=== PATIENT | female | born 1970 | race African-American/Black ===

== ENCOUNTER 2021-10-17 17:38 | Emergency (ER) | payer OTHER, SELFPAY ==
[2021-10-17 18:29] VITALS: BP 121/87; PULSE 77; RESP 18; TEMP 36.2; O2SAT 98; BMI 24.3
== END 2021-10-18 01:41 | disposition left against medical advice (07) ==
LOC: HO.ED 10-18 00:07
PROVIDERS: Emergency Provider Emergency Medicine; PCP Internal Medicine
DX: T25.022A Burn of unspecified degree of left foot, initial encounter (principal); X08.8XXA Exposure to other specified smoke, fire and flames, initial encounter; Y93.9 Activity, unspecified; Y92.9 Unspecified place or not applicable; Y99.9 Unspecified external cause status
CPT/HCPCS: 99281; 99282

== ENCOUNTER 2021-10-19 15:20 | Emergency (ER) | payer OTHER, SELFPAY ==
[2021-10-19 15:34] VITALS: BP 125/95; PULSE 105; RESP 18; TEMP 36.8; O2SAT 97; BMI 25.0
--- NOTE | 2021-10-19 16:23 | ED_ITS ---
HPI - Skin/Abscess/Foreign Bdy General Chief complaint: Skin/Abscess/Foreign Body Stated complaint: left foot 2nd degree burn Time Seen by Provider: 10/19/21 15:57 Source: patient Mode of arrival: ambulatory History of Present Illness HPI narrative: 51-year-old female with a past medical history of sarcoidosis presenting to the ED complaining of burn to top of left foot/toes x1 week s/p spilling hot oil on foot. Reports area of becoming increasingly painful, more swollen/red. Patient waited in our ED on 10/17 however LWT. Denies fever, chills, burn to other area, numbness/tingling, drainage from area MD complaint: abscess/boil Related Data Previous Rx's Medication Instructions Recorded cephalexin 500 mg capsule 500 mg PO QID 7 Days #28 cap 10/19/21 silver sulfadiazine 1 % topical 1 appl TOPICAL BID #50 g 10/19/21 cream Allergies Allergy/AdvReac Type Severity Reaction Status Date / Time ibuprofen [From Motrin] Allergy Unknown HIVES/STOMACH Verified 10/19/21 15:34 UPSET Review of Systems Review of Systems: Constitutional: No Fever, No Chills ENT/Mouth: No Ear Pain, No sore throat, No Rhinorrhea, No Swallowing Difficulty Cardiovascular: No Chest Pain, No SOB Respiratory: No Cough, No Sputum, No Wheezing Gastrointestinal: No Nausea, No Vomiting, No Diarrhea, No Constipation, No Abdominal pain Genitourinary:, No Dysuria, No Urinary Frequency, No Hematuria, No Flank Pain Musculoskeletal: No joint pain, No Myalgias, + foot Swelling Skin: +Skin Lesions, No rash Neuro: No Weakness, No Numbness, No Paresthesias Yes all other systems are reviewed and are negative [facility] Past Medical History Attestation statement: The following information was validated with the patient. Medical History Cardiac defibrillator in place Sarcoidosis Social History Social History Advance Directives: No Advance Directives Information Provided: Yes Physical Exam Vital Signs: Vital Signs: Last Vital Signs Temp 98.2 F 10/19/21 15:34 Pulse 79 10/19/21 16:29 Resp 18 10/19/21 16:29 BP 128/81 10/19/21 16:29 Pulse Ox 100 10/19/21 16:29 BMI result Body Mass Index 25.0 Const: General: cooperative, healthy appearing and no acute distress Kevin entation/consciousness: patient oriented x3 Limitations: no limitations HENMT: Head: Yes normal to inspection Ears: hearing grossly normal bilaterally General nose exam: Normal external nose present Face and sinus: Yes normal facial exam Eyes: General: appearance normal, both eyes and all related structures EOM: EOMs intact bilaterally Neck: Neck: Yes normal visual inspection and Yes no meningeal signs Resp: Effort & Inspection: normal respiratory effort and no respiratory distress Cardio: Rate: regular rate Peripheral pulses: dorsalis pedis present : General: Yes no CVA tenderness Back/Spine/Pelvis: Back: no CVA tenderness Skin: Other: Please refer to images above. Healing Second degree burn noted to ventral aspect of the left foot with mild erythema, swelling, and stages of granulation tissue present. No fluctuation/induration. Distal pulses intact. ROM of toes intact. No streaking. Rashes: no rashes Neuro: General: patient oriented x3 and no meningeal signs Gait exam (Neuro): Normal gait present Extrem: General: Yes normal to inspection and Yes no pedal edema Course Course Course Narrative: -tachycardia resolved without other intervention. MDM - Skin/Abscess/Foreign Bdy MDM Narrative Medical decision making narrative: 51-year-old female with a past medical history of sarcoidosis presenting to the ED complaining of burn to top of left foot/toes x1 week s/p spilling hot oil on foot. On exam mildly tachycardic likely from pain, physical exam as above. Please refer to images. Concern for infected burn. Silver Silvadene applied and patient given 1st dose of Keflex in the ED. Low concern for severe sepsis. Low concern for osteomyelitis Discussed needed re-evaluation in 3 days. Patient verbalized understanding feel safe for discharge home at this time Medical Records Attestation: I reviewed the patient's medical records. Lab Data Attestation: I reviewed the patient's lab results. Discharge Plan Discharge Clinical Impression: Cellulitis, Burn Patient Disposition: Home, Self-Care Instructions: Cellulitis (ED), Second Degree Burn (ED) Additional Instructions: Your burn appears to be healing and also with early infection Apply Silver Silvadene as prescribed In addition Keflex is an oral antibiotic Please be re-evaluated in 3 days If swelling, redness, pain increases, you developed drainage from wound or streaking please return to the ED Prescriptions: New silver sulfadiazine 1 % cream 1 appl topical BID Qty: 50 RF: 0 cephalexin 500 mg capsule 500 mg PO QID 7 Days Qty: 28 RF: 0 Referrals: Jeremy Pickering MD [Primary Care Provider] - 2 days (For re-evaluation)
[2021-10-19 16:29] VITALS: BP 128/81; PULSE 79; RESP 18; O2SAT 100
[2021-10-19] MEDS: cephALEXin 500 MG CAPSULE PO (16:33)
[2021-10-19] MEDS: Silver Sulfadiazine 1 % Cream 20 GM TUBE 1 APPL TOPICAL (16:33)
== END 2021-10-19 16:50 | disposition home or self-care (01) ==
PROVIDERS: Emergency Provider Emergency Medicine; PCP Internal Medicine
DX: L03.032 Cellulitis of left toe (principal); Z79.899 Other long term (current) drug therapy
CPT/HCPCS: 99284

== ENCOUNTER 2021-10-19 16:54 | Outpatient (REF) | payer OTHER, SELFPAY ==
[2021-10-19 17:17] LABS: MANUAL DIFF FLAG NO
[2021-10-19 17:36] LABS: Anion Gap 12 (12-20); Blood Urea Nitrogen 7 mg/dL (9-16); Calcium 10.2 mg/dL (8.4-10.2); Carbon Dioxide 28 mmol/L (22-29); Chloride 105 mmol/L (96-108); Cholesterol 141 mg/dL; Estimated Glomerular Filt Rate > 60; Glucose Random 96 mg/dL (60-115); HDL Cholesterol 42 mg/dL; LDL Cholesterol Calculated 85 mg/dl; Potassium 3.3 mmol/L (3.3-5.1); Sodium 142 mmol/L (135-145); Triglycerides 73 mg/dL
[2021-10-19 17:42] LABS: Basophils Percent Auto 0.5 % (0-2); Eosinophils Absolute Auto 0.1 X10*3/uL (0.0-0.4); Eosinophils Percent Auto 1.7 % (0-4); Hematocrit 40.3 % (37.0-47.0); Hemoglobin 13.6 g/dl (12.0-16.0); Imm Gran Abs Auto 0.01 X10*3/uL (0.00-0.03); Imm Gran Pct Auto 0.2 % (0.0-0.4); Lymphocytes Absolute Auto 2.5 X10*3/uL (1.2-4.9); Lymphocytes Percent Auto 42.6 % (20-40); Mean Corpuscular HGB Conc 33.7 g/dl (31.0-35.0); Mean Corpuscular Hemoglobin 31.3 pg (27.0-33.0); Mean Corpuscular Volume 92.6 fL (80.0-98.0); Mean Platelet Volume 11.8 fL (9.4-12.3); Monocytes Absolute Auto 0.8 X10*3/uL (0.1-1.2); Monocytes Percent Auto 12.8 % (2-11); Neutrophils Absolute Auto 2.5 x10*3/uL (2.0-8.3); Neutrophils Percent Auto 42.2 % (45-73); Platelet Count 245 X10*3/uL (160-400); Red Blood Count 4.35 X10*6/uL (4.20-5.50)
== END 2021-10-19 16:55 | disposition home or self-care (01) ==
LOC: HO.LAB 16:54
PROVIDERS: PCP Internal Medicine; Visit Provider Nurse Practitioner Psychiatric/Mental Health
DX: Z79.899 Other long term (current) drug therapy (principal)
CPT/HCPCS: 36415; 80048; 80061; 85025

== ENCOUNTER 2022-05-07 11:05 | Outpatient (REF) | payer OTHER, SELFPAY ==
[2022-05-07 14:17] LABS: MANUAL DIFF FLAG NO
[2022-05-07 14:43] LABS: Basophils Percent Auto 0.4 % (0-2); Eosinophils Absolute Auto 0.2 X10*3/uL (0.0-0.4); Eosinophils Percent Auto 3.5 % (0-4); Hematocrit 39.9 % (37.0-47.0); Hemoglobin 12.9 g/dl (12.0-16.0); Imm Gran Abs Auto 0.01 X10*3/uL (0.00-0.03); Imm Gran Pct Auto 0.2 % (0.0-0.4); Lymphocytes Absolute Auto 2.5 X10*3/uL (1.2-4.9); Lymphocytes Percent Auto 44.1 % (20-40); Mean Corpuscular HGB Conc 32.3 g/dl (31.0-35.0); Mean Corpuscular Hemoglobin 29.8 pg (27.0-33.0); Mean Corpuscular Volume 92.1 fL (80.0-98.0); Mean Platelet Volume 11.8 fL (9.4-12.3); Monocytes Absolute Auto 0.6 X10*3/uL (0.1-1.2); Monocytes Percent Auto 10.2 % (2-11); Neutrophils Absolute Auto 2.4 x10*3/uL (2.0-8.3); Neutrophils Percent Auto 41.6 % (45-73); Platelet Count 141 X10*3/uL (160-400); Red Blood Count 4.33 X10*6/uL (4.20-5.50); Red Cell Distribution Width 14.4 % (11.0-16.0); White Blood Count 5.7 X10*3/uL (4.8-10.8)
[2022-05-07 14:53] LABS: Estimated Average Glucose 111 mg/dL; Hemoglobin A1c % 5.5 %
[2022-05-07 15:12] LABS: Anion Gap 11 (12-20); Blood Urea Nitrogen 10 mg/dL (9-16); Calcium 9.9 mg/dL (8.4-10.2); Carbon Dioxide 30 mmol/L (22-29); Chloride 104 mmol/L (96-108); Cholesterol 153 mg/dL; Estimated Glomerular Filt Rate > 60; Glucose Fasting 99 mg/dL (60-99); HDL Cholesterol 44 mg/dL; LDL Cholesterol Calculated 94 mg/dl; Potassium 3.8 mmol/L (3.3-5.1); Sodium 141 mmol/L (135-145); Triglycerides 79 mg/dL
[2022-05-07 15:34] LABS: Free T4 (Free Thyroxine) 0.97 ng/dL (0.71-1.85); Thyroid Stimulating Hormone 1.62 uIU/mL (0.32-4.0)
== END 2022-05-07 11:06 | disposition home or self-care (01) ==
LOC: HO.LAB 11:05
PROVIDERS: PCP Internal Medicine; Visit Provider Nurse Practitioner Psychiatric/Mental Health
DX: F33.1 Major depressive disorder, recurrent, moderate (principal); Z79.899 Other long term (current) drug therapy
CPT/HCPCS: 36415; 80048; 80061; 83036; 84439; 84443; 85025

== ENCOUNTER 2023-07-29 13:59 | Outpatient (REF) | payer OTHER, SELFPAY ==
[2023-07-29 15:07] LABS: Hemoglobin 12.7 g/dl (12.0-16.0); SCAN SMEAR FLAG 1
[2023-07-29 15:10] LABS: Basophils Percent Auto 0.4 % (0-2); Eosinophils Absolute Auto 0.1 X10*3/uL (0.0-0.4); Eosinophils Percent Auto 2.7 % (0-4); Lymphocytes Absolute Auto 2.6 X10*3/uL (1.2-4.9); Lymphocytes Percent Auto 49.8 % (20-40); MANUAL DIFF FLAG SCAN; Mean Corpuscular HGB Conc 32.6 g/dl (31.0-35.0); Mean Corpuscular Hemoglobin 30.2 pg (27.0-33.0); Mean Corpuscular Volume 92.9 fL (80.0-98.0); Monocytes Absolute Auto 0.6 X10*3/uL (0.1-1.2); Monocytes Percent Auto 12.1 % (2-11); Neutrophils Absolute Auto 1.8 x10*3/uL (2.0-8.3); Platelet Count 115 X10*3/uL (160-400); White Blood Count 5.1 X10*3/uL (4.8-10.8)
[2023-07-29 15:15] LABS: Anion Gap 11 (12-20); Blood Urea Nitrogen 13 mg/dL (9-16); Calcium 9.6 mg/dL (8.4-10.2); Carbon Dioxide 25 mmol/L (22-29); Chloride 107 mmol/L (96-108); Cholesterol 147 mg/dL (<200); Estimated Glomerular Filt Rate > 60; Glucose Fasting 89 mg/dL (60-99); HDL Cholesterol 47 mg/dL (>40); LDL Cholesterol Calculated 88 mg/dL (<100); Potassium 3.6 mmol/L (3.3-5.1); Sodium 139 mmol/L (135-145); Triglycerides 64 mg/dL (<150)
[2023-07-29 15:20] LABS: PLT ABN DIST 1
[2023-07-29 17:04] LABS: SLIDE REVIEW VERIFIED
== END 2023-07-29 14:00 | disposition home or self-care (01) ==
LOC: HO.LAB 13:59
PROVIDERS: Visit Provider Nurse Practitioner Psychiatric/Mental Health
DX: F33.1 Major depressive disorder, recurrent, moderate (principal); F41.1 Generalized anxiety disorder; Z79.899 Other long term (current) drug therapy
CPT/HCPCS: 36415; 80048; 80061; 85025

== ENCOUNTER 2023-08-29 12:03 | Outpatient (REF) | payer OTHER, SELFPAY ==
[2023-08-29 12:31] LABS: MANUAL DIFF FLAG NO
[2023-08-29 13:52] LABS: Estimated Average Glucose 108 mg/dL; Hemoglobin A1c % 5.4 % (<6.0)
[2023-08-29 13:54] LABS: Basophils Percent Auto 0.2 % (0-2); Eosinophils Absolute Auto 0.1 X10*3/uL (0.0-0.4); Hematocrit 38.7 % (37.0-47.0); Hemoglobin 12.6 g/dl (12.0-16.0); Imm Gran Abs Auto 0.01 X10*3/uL (0.00-0.03); Imm Gran Pct Auto 0.2 % (0.0-0.4); Lymphocytes Absolute Auto 1.8 X10*3/uL (1.2-4.9); Lymphocytes Percent Auto 43.5 % (20-40); Mean Corpuscular HGB Conc 32.6 g/dl (31.0-35.0); Mean Corpuscular Hemoglobin 30.4 pg (27.0-33.0); Mean Corpuscular Volume 93.3 fL (80.0-98.0); Mean Platelet Volume 13.7 fL (9.4-12.3); Monocytes Absolute Auto 0.4 X10*3/uL (0.1-1.2); Monocytes Percent Auto 9.6 % (2-11); Neutrophils Absolute Auto 1.8 x10*3/uL (2.0-8.3); Neutrophils Percent Auto 44.5 % (45-73); Platelet Count 100 X10*3/uL (160-400); Red Blood Count 4.15 X10*6/uL (4.20-5.50); Red Cell Distribution Width 14.6 % (11.0-16.0); White Blood Count 4.1 X10*3/uL (4.8-10.8)
[2023-08-29 14:31] LABS: Erythrocyte Sedimentation Rate 7 MM/HR (0-20)
[2023-08-29 14:39] LABS: Alanine Aminotransferase 18 U/L (0-31); Albumin Level 3.8 g/dL (3.5-5.0); Alkaline Phosphatase 71 U/L (39-117); Anion Gap 12 (12-20); Aspartate Amino Transferase 23 U/L (5-31); Bilirubin Total 0.4 mg/dL (0.0-1.0); Blood Urea Nitrogen 12 mg/dL (9-16); C Reactive Protein 0.15 mg/dL (< or = 0.50); Calcium 9.8 mg/dL (8.4-10.2); Carbon Dioxide 24 mmol/L (22-29); Chloride 108 mmol/L (96-108); Estimated Glomerular Filt Rate > 60; Glucose Random 132 mg/dL (60-115); Potassium 3.9 mmol/L (3.3-5.1); Sodium 140 mmol/L (135-145); Total Protein 6.9 g/dL (6.5-8.0)
[2023-09-04 23:39] LABS: NT-proBNP 2119 pg/mL (<125)
== END 2023-08-29 12:04 | disposition home or self-care (01) ==
LOC: HO.LAB 12:03
PROVIDERS: PCP Internal Medicine; Visit Provider Nurse Practitioner Family
DX: I50.22 Chronic systolic (congestive) heart failure (principal); D86.85 Sarcoid myocarditis; I25.10 Atherosclerotic heart disease of native coronary artery without angina pectoris
CPT/HCPCS: 36415; 80053; 83036; 83880; 85025; 85652; 86140

== ENCOUNTER 2024-01-14 14:41 | Inpatient (IN) | payer OTHER, SELFPAY ==
--- NOTE | ~2024-01-14 | XR_ITS ---
EXAMINATION: XR CHEST CLINICAL INFORMATION: Shortness of breath COMPARISON: Chest x-ray October 25, 2010 TECHNIQUE: 2 views of the chest were obtained. FINDINGS: Heart size is enlarged. Pacemaker lead in right ventricle. Mild prominence of the pulmonary vessels with Lesley B lines seen in the right lung base consistent with mild interstitial edema. No focal airspace opacities or overt pulmonary edema. No significant pleural effusion. XR/XR chest 2V IMPRESSION: Cardiomegaly. Pacemaker lead in right ventricle. Mild pulmonary vascular congestion.
[2024-01-14 14:44] VITALS: BP 130/76; PULSE 105; RESP 18; TEMP 36.9; O2SAT 100; BMI 21.0
--- NOTE | 2024-01-14 14:49 | ECG_ITS ---
Test Reason : SOB Blood Pressure : / mmHG Vent. Rate : 090 BPM Atrial Rate : 090 BPM P-R Int : 172 ms QRS Dur : 094 ms QT Int : 400 ms P-R-T Axes : 036 185 038 degrees QTc Int : 489 ms Normal sinus rhythm Possible Left atrial enlargement Possible Right ventricular hypertrophy Lateral infarct , age undetermined Abnormal ECG No previous ECGs available Referred By: Juventino Moralez Electronically Signed By:ANNE POPE MD
[2024-01-14 15:36] LABS: MANUAL DIFF FLAG NO
[2024-01-14 15:38] LABS: Basophils Percent Auto 0.6 % (0-2); Eosinophils Absolute Auto 0.2 X10*3/uL (0.0-0.4); Eosinophils Percent Auto 2.4 % (0-4); Hematocrit 40.7 % (37.0-47.0); Hemoglobin 13.2 g/dl (12.0-16.0); Imm Gran Abs Auto 0.01 X10*3/uL (0.00-0.03); Imm Gran Pct Auto 0.1 % (0.0-0.4); Lymphocytes Absolute Auto 2.3 X10*3/uL (1.2-4.9); Lymphocytes Percent Auto 32.2 % (20-40); Mean Corpuscular HGB Conc 32.4 g/dl (31.0-35.0); Mean Corpuscular Hemoglobin 30.2 pg (27.0-33.0); Mean Corpuscular Volume 93.1 fL (80.0-98.0); Mean Platelet Volume 12.7 fL (9.4-12.3); Monocytes Absolute Auto 0.7 X10*3/uL (0.1-1.2); Neutrophils Absolute Auto 3.9 x10*3/uL (2.0-8.3); Neutrophils Percent Auto 54.7 % (45-73); Platelet Count 134 X10*3/uL (160-400); Red Blood Count 4.37 X10*6/uL (4.20-5.50); Red Cell Distribution Width 16.2 % (11.0-16.0); White Blood Count 7.1 X10*3/uL (4.8-10.8)
[2024-01-14 15:49] LABS: D Dimer High Sensitivity 486 NG/ML
[2024-01-14 15:53] LABS: Alanine Aminotransferase 39 U/L (0-31); Albumin Level 3.1 g/dL (3.5-5.0); Alkaline Phosphatase 71 U/L (39-117); Anion Gap 8 (12-20); Aspartate Amino Transferase 45 U/L (5-31); Bilirubin Direct 0.3 mg/dL (0.0-0.5); Bilirubin Total 0.5 mg/dL (0.0-1.0); Blood Urea Nitrogen 10 mg/dL (9-16); Calcium 8.9 mg/dL (8.4-10.2); Carbon Dioxide 28 mmol/L (22-29); Chloride 110 mmol/L (96-108); Creatinine Clr Calc Pharmacy 71.7; Estimated Glomerular Filt Rate > 60; Glucose Random 95 mg/dL (60-115); Sodium 142 mmol/L (135-145)
[2024-01-14 15:59] LABS: B Type Natriuretic Peptide 1181 pg/mL (<100)
--- NOTE | 2024-01-14 17:10 | ED.GENADULT ---
HPI - General Adult General Chief complaint: Dyspnea Stated complaint: dIFF bREATHING Related Data Previous Rx's Medication Instructions Recorded cephalexin 500 mg capsule 500 mg PO QID 7 days #28 caps 10/19/21 silver sulfadiazine 1 % topical 1 appl topical BID #50 grams 10/19/21 cream Allergies Allergy/AdvReac Type Severity Reaction Status Date / Time ibuprofen [From Motrin] Allergy Unknown HIVES/STOMACH Verified 10/19/21 15:34 UPSET PMFSH Past Medical History Medical History Cardiac defibrillator in place Sarcoidosis Physical Exam ED Vital Signs: Vital Signs - 24 hr 01/14/24 14:44 Temperature 98.5 F Pulse Rate 105 H Respiratory Rate 18 Blood Pressure 130/76 Pulse Oximetry 100 Oxygen Delivery Method Room Air BMI result Body Mass Index 21.0 Course Course Course Narrative: Patient complains of shortness of breath for the last 5 days and chest tightness with exertion She is breathing rapidly about mid 20s, O2 sat is normal, pulse is 105, no respiratory distress Labs are ordered x-ray and EKG This is rapid medical exam done in triage pending full evaluation and dispo by ER providers Medical Decision Making Lab Data 01/14/24 15:31 01/14/24 15:31 Labs: Lab Results 01/14/24 Range/Units 15:31 WBC 7.1 (4.8-10.8) X10*3/uL RBC 4.37 (4.20-5.50) X10*6/uL Hgb 13.2 (12.0-16.0) g/dl Hct 40.7 (37.0-47.0) % MCV 93.1 (80.0-98.0) fL MCH 30.2 (27.0-33.0) pg MCHC 32.4 (31.0-35.0) g/dl RDW 16.2 H (11.0-16.0) % Plt Count 134 L D (160-400) X10*3/uL MPV 12.7 H (9.4-12.3) fL Immature Gran % (Auto) 0.1 (0.0-0.4) % Neut % (Auto) 54.7 (45-73) % Lymph % (Auto) 32.2 (20-40) % [place] % (Auto) 10.0 (2-11) % Eos % (Auto) 2.4 (0-4) % Baso % (Auto) 0.6 (0-2) % Lymph # (Auto) 2.3 (1.2-4.9) X10*3/uL [place] # (Auto) 0.7 (0.1-1.2) X10*3/uL Eos # (Auto) 0.2 (0.0-0.4) X10*3/uL Baso # (Auto) 0.0 (0.0-0.2) X10*3/uL Abs Immat Gran (auto) 0.01 (0.00-0.03) X10*3/uL Absolute Neuts (auto) 3.9 (2.0-8.3) x10*3/uL Absolute Nucleated RBC 0.000 (0.0-0.012) X10*3/uL Nucleated RBC % (auto) 0.0 (0.0-0.2) /100WBC D-Dimer High Sensitivty 486 NG/ML Sodium 142 (135-145) mmol/L Potassium 4.0 (3.3-5.1) mmol/L Chloride 110 H (96-108) mmol/L Carbon Dioxide 28 (22-29) mmol/L Anion Gap 8 L (12-20) BUN 10 (9-16) mg/dL Creatinine 0.87 (0.5-1.4) mg/dL Estim Creat Clear Calc 71.7 Estimated GFR > 60 Random Glucose 95 (60-115) mg/dL Calcium 8.9 D (8.4-10.2) mg/dL Total Bilirubin 0.5 (0.0-1.0) mg/dL Direct Bilirubin 0.3 (0.0-0.5) mg/dL AST 45 H (5-31) U/L ALT 39 H (0-31) U/L Alkaline Phosphatase 71 (39-117) U/L Troponin I High Sens 30.0 H (<3.5-17.0) ng/L B-Natriuretic Peptide 1181 H (<100) pg/mL Total Protein 6.0 L (6.5-8.0) g/dL Albumin 3.1 L (3.5-5.0) g/dL Discharge Plan Discharge Prescriptions: No Action silver sulfadiazine 1 % cream 1 appl topical BID Qty: 50 0RF Rx Instructions: apply a 1.5 mm thickness cephalexin 500 mg capsule 500 mg PO QID 7 Days Qty: 28 0RF
[2024-01-14 19:55] VITALS: BP 116/78; PULSE 88; RESP 14; TEMP 36.7
--- NOTE | 2024-01-14 20:17 | ED.GENADULT ---
HPI - General Adult General Chief complaint: Dyspnea Stated complaint: dIFF bREATHING Time Seen by Provider: 01/14/24 20:08 Source: patient Limitations: no limitations History of Present Illness HPI narrative: 53 years old with history of sarcoidosis, CHF status post ICD on Entresto Presents emergency room for shortness of breath has been ongoing for 5 days not associated with chest pain. Patient reports that the shortness of breath can present at rest as well as exertional and usually lasts few minutes. She denies productive cough, chills or fever. No abdominal pain nausea or vomiting. No recent trauma. Related Data Previous Rx's Medication Instructions Recorded cephalexin 500 mg capsule 500 mg PO QID 7 days #28 caps 10/19/21 silver sulfadiazine 1 % topical 1 appl topical BID #50 grams 10/19/21 cream Allergies Allergy/AdvReac Type Severity Reaction Status Date / Time ibuprofen [From Motrin] Allergy Unknown HIVES/STOMACH Verified 10/19/21 15:34 UPSET PMFSH Past Medical History Medical History Cardiac defibrillator in place Sarcoidosis Social History Social History Advance Directives: No Advance Directives Information Provided: No Physical Exam ED Vital Signs: Vital Signs - 24 hr 01/14/24 14:44 01/14/24 19:55 Temperature 98.5 F 98.1 F Pulse Rate 105 H 88 Respiratory Rate 18 14 Blood Pressure 130/76 116/78 Pulse Oximetry 100 Oxygen Delivery Method Room Air Room Air Oxygen Flow Rate 95 BMI result Body Mass Index 21.0 Course Reevaluation(s) Reevaluation #1: Patient has elevated BNP with mild elevated troponin. Patient does not have chest pain and EKG showed no signs of STEMI. Likely patient's symptoms are secondary to CHF exacerbation with reduced ejection fraction. Patient was given furosemide 20 mg IV and aspirin. At this time I think given patient's comorbidity it is appropriate to admit the patient for IV diuretics. Discussed with hospitalist with agree with plan. Time: 20:32 Medical Decision Making Admission/Observation Consideration of admission/observation: Escalation of care including admission/observation considered Consult Healthcare Provider Management of the patient was discussed with: Hospitalist (Consulted for admission) Lab Data MDM Lab Attestation statement: I reviewed the patient's lab results. I personally reviewed the patient lab work showed elevated BNP and mild elevated troponin, we will order a 2nd troponin+ 01/14/24 15:31 01/14/24 15:31 Labs: Lab Results 01/14/24 Range/Units 15:31 WBC 7.1 (4.8-10.8) X10*3/uL RBC 4.37 (4.20-5.50) X10*6/uL Hgb 13.2 (12.0-16.0) g/dl Hct 40.7 (37.0-47.0) % MCV 93.1 (80.0-98.0) fL MCH 30.2 (27.0-33.0) pg MCHC 32.4 (31.0-35.0) g/dl RDW 16.2 H (11.0-16.0) % Plt Count 134 L D (160-400) X10*3/uL MPV 12.7 H (9.4-12.3) fL Immature Gran % (Auto) 0.1 (0.0-0.4) % Neut % (Auto) 54.7 (45-73) % Lymph % (Auto) 32.2 (20-40) % [place] % (Auto) 10.0 (2-11) % Eos % (Auto) 2.4 (0-4) % Baso % (Auto) 0.6 (0-2) % Lymph # (Auto) 2.3 (1.2-4.9) X10*3/uL [place] # (Auto) 0.7 (0.1-1.2) X10*3/uL Eos # (Auto) 0.2 (0.0-0.4) X10*3/uL Baso # (Auto) 0.0 (0.0-0.2) X10*3/uL Abs Immat Gran (auto) 0.01 (0.00-0.03) X10*3/uL Absolute Neuts (auto) 3.9 (2.0-8.3) x10*3/uL Absolute Nucleated RBC 0.000 (0.0-0.012) X10*3/uL Nucleated RBC % (auto) 0.0 (0.0-0.2) /100WBC D-Dimer High Sensitivty 486 NG/ML Sodium 142 (135-145) mmol/L Potassium 4.0 (3.3-5.1) mmol/L Chloride 110 H (96-108) mmol/L Carbon Dioxide 28 (22-29) mmol/L Anion Gap 8 L (12-20) BUN 10 (9-16) mg/dL Creatinine 0.87 (0.5-1.4) mg/dL Estim Creat Clear Calc 71.7 Estimated GFR > 60 Random Glucose 95 (60-115) mg/dL Calcium 8.9 D (8.4-10.2) mg/dL Total Bilirubin 0.5 (0.0-1.0) mg/dL Direct Bilirubin 0.3 (0.0-0.5) mg/dL AST 45 H (5-31) U/L ALT 39 H (0-31) U/L Alkaline Phosphatase 71 (39-117) U/L Troponin I High Sens 30.0 H (<3.5-17.0) ng/L B-Natriuretic Peptide 1181 H (<100) pg/mL Total Protein 6.0 L (6.5-8.0) g/dL Albumin 3.1 L (3.5-5.0) g/dL Independent Interpretation I performed an independent interpretation of an: EKG (I personally reviewed the patient's EKG shows sinus rhythm.), Plain X-Ray (I personally reviewed patient's chest x-ray that shows bilateral congestion) and Ultrasound (I performed a bedside ultrasound that showed EF with 15 20% with bilateral B-lines.) Discharge Plan Discharge Clinical Impression: Congestive heart failure Patient Disposition: Admitted As Inpatient Prescriptions: No Action silver sulfadiazine 1 % cream 1 appl topical BID Qty: 50 0RF Rx Instructions: apply a 1.5 mm thickness cephalexin 500 mg capsule 500 mg PO QID 7 Days Qty: 28 0RF
--- NOTE | 2024-01-14 20:30 | PM.IMHP ---
History of Present Illness Date of Service: 01/14/24 Chief Complaint: Dyspnea This is a 53-year-old female with pertinent history of congestive heart failure with reduced ejection fraction s/p ICD, paroxysmal atrial fibrillation on Eliquis, mixed hyperlipidemia, mood disorder who presents to the emergency department for evaluation of dyspnea. Patient states that dyspnea started 5 days prior to presentation. It is worse with exertion. Denies orthopnea but does endorse paroxysmal nocturnal dyspnea. She denies fever, chills, cough. No chest discomfort or palpitations. Patient has poor insight into her medical problems but states she is compliant with home medications. No abdominal discomfort, changes in urinary or bowel habits. The emergency department, imaging concerning for vascular congestion with cardiomegaly and Lesley B lines. BNP found to be elevated. Review of Systems Constitutional: Constitutional: Reports fatigue, Reports lethargy and Reports weakness Cardiovascular: Cardiovascular: Reports dyspnea, Reports dyspnea on exertion and Reports paroxysmal nocturnal dyspnea Respiratory: Respiratory: Reports dyspnea and Reports dyspnea on exertion Gastrointestinal: Gastrointestinal: Reports no additional gastrointestinal complaints Genitourinary: Genitourinary: Reports no additional female genitourinary complaints Neurologic: Reports weakness Endocrine: Endocrine: Reports fatigue [facility] Medical History Mood disorder Atrial fibrillation Congestive heart failure Sarcoidosis Cardiac defibrillator in place Pertinent family history: No family history of early CAD Social History Alcohol intake: former Patient Tobacco Use Status: Former Tobacco user Smoked in Last 30 Days: Yes Use of substances other than those prescribed or required for medical reasons: Yes Substance Use Type: Marijuana Advance Directives: No Advance Directives Information Provided: No Nutrition Risks: No Nutritional Risk Patient : No Meds Allergies Allergy/AdvReac Type Severity Reaction Status Date / Time ibuprofen [From Motrin] Allergy Unknown HIVES/STOMACH Verified 10/19/21 15:34 UPSET Home Medications Medication Instructions Recorded Confirmed Last Taken Type apixaban 5 mg tablet (Eliquis) 5 mg PO BID 01/14/24 01/14/24 01/13/24 History clonidine HCl 0.1 mg tablet 0.1 mg PO BID PRN Anxiety 01/14/24 01/14/24 01/13/24 History duloxetine 60 mg capsule,delayed 60 mg PO DAILY 01/14/24 01/14/24 01/13/24 History release lamotrigine 100 mg tablet 100 mg PO DAILY 01/14/24 01/14/24 01/13/24 History mirtazapine 30 mg tablet 30 mg PO BEDTIME 01/14/24 01/14/24 01/13/24 History olanzapine 20 mg tablet 20 mg PO BEDTIME 01/14/24 01/14/24 01/13/24 History sacubitril 49 mg-valsartan 51 mg 1 tab PO BID 01/14/24 01/14/24 01/13/24 History tablet (Entresto) spironolactone 25 mg tablet 12.5 mg PO DAILY 01/14/24 01/14/24 01/13/24 History Physical Exam Vital Signs and Narrative: Vital Signs: Last Vital Signs Temp 98.1 F 01/14/24 19:55 Pulse 88 01/14/24 19:55 Resp 14 01/14/24 19:55 BP 116/78 01/14/24 19:55 Pulse Ox 100 01/14/24 14:44 O2 Del Method Room Air 01/14/24 19:55 O2 Flow Rate 95 01/14/24 19:55 BMI result Body Mass Index 21.0 Middle-aged female lying in bed in mild distress Neck supple, + JVD Regular rate and rhythm, S1-S2 heard Regular breath sounds bilaterally, no wheezing or crackles appreciated Abdomen soft nontender, no guarding, no rigidity Patient is awake, alert and oriented to self, place, time and person ; no focal motor deficit Psych: Normal mood Bilateral pedal edema Results Labs 01/14/24 15:31 01/14/24 15:31 Labs: Laboratory Results - last 24 hr 01/14/24 15:31 MCV 93.1 MCH 30.2 MCHC 32.4 RDW 16.2 H Plt Count 134 L D MPV 12.7 H Immature Gran % (Auto) 0.1 Neut % (Auto) 54.7 Lymph % (Auto) 32.2 [place] % (Auto) 10.0 Eos % (Auto) 2.4 Baso % (Auto) 0.6 Lymph # (Auto) 2.3 [place] # (Auto) 0.7 Eos # (Auto) 0.2 Baso # (Auto) 0.0 Abs Immat Gran (auto) 0.01 Absolute Neuts (auto) 3.9 Absolute Nucleated RBC 0.000 Nucleated RBC % (auto) 0.0 D-Dimer High Sensitivty 486 Anion Gap 8 L Estim Creat Clear Calc 71.7 Estimated GFR > 60 Random Glucose 95 Calcium 8.9 D Total Bilirubin 0.5 Direct Bilirubin 0.3 AST 45 H ALT 39 H Alkaline Phosphatase 71 Troponin I High Sens 30.0 H B-Natriuretic Peptide 1181 H Total Protein 6.0 L Albumin 3.1 L Imaging Radiologist's Impressions: Impressions Chest X-Ray 01/14/24 15:03 IMPRESSION: Cardiomegaly. Pacemaker lead in right ventricle. Mild pulmonary vascular congestion. Assessment and Plan (1) Congestive heart failure: Status: Acute Plan This is a 53-year-old female with pertinent history of congestive heart failure with reduced ejection fraction s/p ICD, paroxysmal atrial fibrillation on Eliquis, mixed hyperlipidemia, mood disorder who presents to the emergency department for evaluation of dyspnea. #. Acute respiratory distress due to acute on chronic congestive heart failure with reduced ejection fraction: Will admit patient and initiate IV diuresis. Strict I's and O's. Low-salt diet. Obtaining transthoracic echocardiogram. Patient on Entresto #. Paroxysmal atrial fibrillation on Eliquis #. Mood disorder: Continue home mood stabilizers #. Mixed hyperlipidemia: On statin DVT prophylaxis: Eliquis Full code Admit as inpatient and will require two night minimum hospital stay for IV diuresis, close monitoring of hemodynamics and volume status (as above), which is not possible in a lesser acute setting. Quality Stroke Does the patient have a stroke diagnosis?: No VTE Prior VTE?: No VTE Risk Level:: Medical - moderate - high VTE Device Contraindication: Treatment Not Indicated VTE Drug Contraindication: N/A - Med Ordered
[2024-01-14] MEDS: Furosemide 20 MG/2 ML VIAL IVPUSH (21:10)
[2024-01-14 21:11] VITALS: BP 96/61; PULSE 77; RESP 18; O2SAT 97
--- NOTE | 2024-01-14 21:13 | PHA.MEDREC ---
Pharmacy Consult ? Medication Reconciliation Pharmacy has completed the medication reconciliation. Patient reported eliquis and entresto, then confirmed the rest of the meds based on claim history. Able to report what time of days. Carleen Sweeney, [email or web address]
[2024-01-14] MEDS: OLANZapine 10 MG TABLET 20 MG PO (22:12)
[2024-01-14] MEDS: Mirtazapine 30 MG TABLET PO (22:13)
[2024-01-14] MEDS: Apixaban 5 MG TABLET PO (22:13)
--- NOTE | 2024-01-14 22:19 | PC.NURSE ---
Patient alert and oriented x 3. Pleasant woman 20 g iv in left forearm. iv lasix given. Patient ambulates independently. labs drawn and sent. bnp-elevated tele: sinus rythym
[2024-01-14] MEDS: Sacubitril/Valsartan 49/51 1 TAB TABLET PO (23:04)
[2024-01-14 23:14] VITALS: BP 90/68; PULSE 68; RESP 18; TEMP 36.1; O2SAT 96
[2024-01-14] MEDS: 0.9 % Sodium Chloride Flush 3 ML SYRINGE IVFLUSH (23:52)
[2024-01-15 05:41] VITALS: BP 90/64; PULSE 70; RESP 18; TEMP 36.2; O2SAT 96
[2024-01-15 06:11] LABS: MANUAL DIFF FLAG NO
[2024-01-15 06:19] LABS: Basophils Percent Auto 0.4 % (0-2); Eosinophils Absolute Auto 0.2 X10*3/uL (0.0-0.4); Eosinophils Percent Auto 2.2 % (0-4); Hematocrit 39.4 % (37.0-47.0); Hemoglobin 12.9 g/dl (12.0-16.0); Imm Gran Abs Auto 0.02 X10*3/uL (0.00-0.03); Imm Gran Pct Auto 0.3 % (0.0-0.4); Lymphocytes Absolute Auto 2.4 X10*3/uL (1.2-4.9); Mean Corpuscular HGB Conc 32.7 g/dl (31.0-35.0); Mean Corpuscular Hemoglobin 30.3 pg (27.0-33.0); Mean Corpuscular Volume 92.5 fL (80.0-98.0); Mean Platelet Volume 12.5 fL (9.4-12.3); Monocytes Absolute Auto 0.8 X10*3/uL (0.1-1.2); Monocytes Percent Auto 11.1 % (2-11); Neutrophils Absolute Auto 3.5 x10*3/uL (2.0-8.3); Platelet Count 128 X10*3/uL (160-400); Red Blood Count 4.26 X10*6/uL (4.20-5.50); Red Cell Distribution Width 16.1 % (11.0-16.0); White Blood Count 6.9 X10*3/uL (4.8-10.8)
[2024-01-15 06:27] LABS: Anion Gap 10 (12-20); Blood Urea Nitrogen 10 mg/dL (9-16); Calcium 8.8 mg/dL (8.4-10.2); Carbon Dioxide 29 mmol/L (22-29); Chloride 108 mmol/L (96-108); Estimated Glomerular Filt Rate > 60; Glucose Random 92 mg/dL (60-115); Potassium 3.9 mmol/L (3.3-5.1); Sodium 143 mmol/L (135-145)
--- NOTE | 2024-01-15 06:48 | PC.NURSE ---
Assumed care of patient at 23:15 on 01/13. Pt seen in ED overflow, awaiting bed assignment on s3. Patient at A&Ox4. Denies dizziness, chest pain, sob, and n/v. Breathing is even and unlabored without distress on RA. VSS on review. Pt ambulates independently to the bathroom without AD to void. Denies pain. Hourly purposeful rounding.? BP remains soft on morning vitals, 90/64 HR 70. Pt is asymptomatic. On IV lasix. Dr. Verdugo was notified. No new orders. Handoff report given to oncoming RN at 06:45.?
--- NOTE | 2024-01-15 07:00 | CA_ITS ---
Transthoracic Echocardiogram Patient (Last, First, Middle): Yvonne Mason K Gender: Female Date of : 1970 Age: 53 Procedure Date: 01/15/2024 Procedure Type: Transthoracic Echocardiogram Location: ER Height: 170.18 cm Weight: 60.78 kg BSA: 1.71 m2 Heart Rate: 59 bpm BP: 90 / 64 mmHg Sap Ppm Consultant: KULWINDER Referring MD: Tobias Verdugo MD Metal Cnc Operator: Kash Garcia MD Symptoms: CHF Study Quality: Adequate w contrast ECG Rhythm: Sinus Conclusions: - 1. Severely dilated left ventricle with severe LV systolic dysfunction with LVEF of 15-20% with grade 2 diastolic dysfunction 2. Moderately dilated right-sided chambers with severe RV systolic dysfunction 3. Moderately dilated left atrium 4. Moderate to severe mitral regurgitation 5. Normal measured RV systolic pressure elevated right atrial pressures 6. Trivial pericardial effusion Findings Procedure Information Contrast agent, definity, is being given per protocol without apparent complications. Left Ventricle Severely increased left ventricular cavity size. There is normal left ventricular wall thickness. The left ventricular systolic function is severely decreased. The visually estimated ejection fraction is between 15 20%. There is severe global hypokinesis. Spectral Doppler is indicative of a pseudonormal filling pattern. E/E prime ratio is >15, consistent with elevated filling pressures. Evidence suggests grade II (moderate) diastolic dysfunction. Right Ventricle Moderately increased right ventricular cavity size. There is severely decreased right ventricular systolic function. There is an ICD wire seen in the right ventricle. Atria The left atrium is moderately dilated. There is no evidence of interatrial shunt. The right atrium is mildly dilated. A pacemaker wire is identified in the right atrium. Aortic Valve Normal aortic valve structure and function. There is no aortic valve stenosis. There is no aortic valve regurgitation. Mitral Valve Normal mitral valve structure and function. There is mild anterior and moderate posterior mitral leaflet thickening. There is moderate to severe mitral valve regurgitation. There is no mitral valve stenosis. Pulmonic Valve The pulmonic valve is likely normal. Tricuspid Valve There is mild tricuspid valve regurgitation. Mildly elevated right atrial pressure. There is no evidence of pulmonary hypertension. Great Vessels All visible segments of the aorta are normal in size. The pulmonary artery was not well visualized. Venous The inferior vena cava is mildly dilated and collapses less than 50% with inspiration. Pericardium/Pleural There is a trivial circumferential pericardial effusion. Prior Study Comparison No prior study available for comparison. Measurements 2D Linear Measurements IVSd: 0.74 0.6-0.9/0.6-1.0 cm LVIDd: 7.76 3.9-5.3/4.2-5.9 cm LVIDd Index: 4.54 2.4-3.2/2.2-3.1 cm/m2 LVIDs: 7.51 2.0-3.6 cm LVPWd: 0.60 0.7-1.1 cm LA Diam: 4.80 2.7-3.8/3.0-4.0 cm LAIDs Index: 2.81 1.5-2.3 cm/m2 LV Mass: 296.44 67-162/88-224 g LV Mass Index: 173.36 43-95/49-115 g/m2 LVOT Diam: 2.20 3.0+(-)1.3 cm 2D Systolic Function EF 4C: 23.00 >55% EF 2C: 17.40 >55% EF BiP: 18.00 >55% Mitral Valve MV Pk E: 0.90 MV PK A: 0.55 MV Decel Time: 127.00 E/A: 1.60 E'Lateral: 3.68 E'Medial: 3.98 E/E' Med: 22.50 E/E' Lat: 24.30 PHT: 37.00 MVA PHT: 5.95 Decel [place]: 7.03 MR Vol - PW Dopp: 26.88 MR VTI: 1.28 MR ERO: 21.00 MR Alias Jose Angel: 0.39 MR RAD: 0.60 Aortic Valve AoV Pk Jose Angel: 0.70 AoV Pk Grad: 2.00 JOSELUIS: 3.83 LVOT LVOT Pk Jose Angel: 0.72 LVOT Mn Jose Angel: 0.53 LVOT VTI: 0.11 LVOT Pk Grad: 2.00 LVOT Mn Grad: 1.00 LVOT Diam: 2.20 LVOT Area: 3.80 Diastolic Function MV Pk E: 0.90 MV Pk A: 0.55 E/A: 1.60 E'Medial: 3.98 E/E' Med: 22.50 E' Laterial: 3.68 E/E' Lat: 24.30 Right Ventricle TAPSE (mm): 6.40 TVS' Jose Angel: 4.73 Tricuspid Valve TR Pk Jose Angel: 2.15 TR Pk Grad: 18.00 RA Press: 8.00 RVSP: 26.00 Great Vessels Aorta Sinus of Valsalva: 3.00 2.0-3.5 cm Ao Asc: 3.00 2.1-3.4 cm Pulmonary Valve PV Pk Jose Angel: 0.50 Peak PV Grad: 1.00 Updated in Other Vendor System with Status of Final Kash Garcia MD electronically signed on 01/15/2024 2:24:12 PM with status of Final
--- NOTE | 2024-01-15 07:22 | PC.NURSE ---
resumed care of patient, she is currently resting comfortable, call couch within reach. Awaiting ECHO this morning/ bed placement
[2024-01-15 08:05] VITALS: BP 115/73; PULSE 79; RESP 16; TEMP 36.4; O2SAT 98
[2024-01-15] MEDS: DULoxetine HCl 60 MG CAPSULE.DR PO (08:07)
[2024-01-15] MEDS: lamoTRIgine 100 MG TABLET PO (08:07)
[2024-01-15] MEDS: Furosemide 40 MG/4 ML VIAL IVPUSH (08:07)
[2024-01-15] MEDS: Spironolactone 25 MG TABLET 12.5 MG PO (08:07)
[2024-01-15] MEDS: Sacubitril/Valsartan 49/51 1 TAB TABLET PO (08:07)
[2024-01-15] MEDS: Apixaban 5 MG TABLET PO ×2 (08:08→21:39)
[2024-01-15] MEDS: 0.9 % Sodium Chloride Flush 3 ML SYRINGE IVFLUSH ×3 (08:08→22:40)
--- NOTE | 2024-01-15 10:52 | HO.PM.IMPN ---
Subjective Subjective Date of Service: 01/15/24 Interval History: improving Physical Exam Vital Signs: Vital Signs: Last Vital Signs Temp 97.5 F 01/15/24 08:05 Pulse 79 01/15/24 08:05 Resp 16 01/15/24 08:05 BP 115/73 01/15/24 08:05 Pulse Ox 98 01/15/24 08:05 O2 Del Method Room Air 01/15/24 08:05 O2 Flow Rate 95 01/14/24 19:55 BMI result Body Mass Index 21.0 General: AO X 3, no acute distress Resp: CTA bilateral, no accessory muscles used CVS: S1,S2,RRR GI: soft, non tender, non distended Neuro: motor grossly intact, alert Psych: appropriate affect, appropriate insight Objective Data Active Medications Acetaminophen (Acetaminophen 325 Mg Tablet) 650 mg PO Q6H PRN PRN Reason: Pain, Mild (Pain Scale 1-3) Apixaban (Apixaban 5 Mg Tablet) 5 mg PO BID [facility] Last Admin: 01/15/24 08:08 Dose: 5 mg Documented By: MARTIN Clonidine HCl (Clonidine Hcl 0.1 Mg Tablet) 0.1 mg PO BID PRN; Protocol PRN Reason: Anxiety Duloxetine HCl (Duloxetine Hcl 60 Mg Capsule.Dr) 60 mg PO DAILY [facility] Last Admin: 01/15/24 08:07 Dose: 60 mg Documented By: MARTIN Furosemide (Furosemide 40 Mg/4 Ml Vial) 40 mg IVPUSH DAILY [facility]; Protocol Last Admin: 01/15/24 08:07 Dose: 40 mg Documented By: MARTIN Lamotrigine (Lamotrigine 100 Mg Tablet) 100 mg PO DAILY [facility] Last Admin: 01/15/24 08:07 Dose: 100 mg Documented By: MARTIN Melatonin (Melatonin 3 Mg Tablet) 6 mg PO BEDTIME PRN PRN Reason: Insomnia Mirtazapine (Mirtazapine 30 Mg Tablet) 30 mg PO BEDTIME [facility] Last Admin: 01/14/24 22:13 Dose: 30 mg Documented By: YAIR Olanzapine (Olanzapine 10 Mg Tablet) 20 mg PO BEDTIME [facility] Last Admin: 01/14/24 22:12 Dose: 20 mg Documented By: YAIR Ondansetron HCl (Ondansetron Hcl 4 Mg/2 Ml Vial) 4 mg IVPUSH Q8H PRN PRN Reason: Nausea and Vomiting Sacubitril/Valsartan (Sacubitril/Valsartan 49/51 1 Tab Tablet) 1 tab PO BID [facility]; Protocol Last Admin: 01/15/24 08:07 Dose: 1 tab Documented By: MARTIN Sodium Chloride (0.9 % Sodium Chloride Flush 3 Ml Syringe) 3 ml IVFLUSH QSHIFT OSIEL Last Admin: 01/15/24 08:08 Dose: 3 ml Documented By: MARTIN Spironolactone (Spironolactone 25 Mg Tablet) 12.5 mg PO DAILY [facility]; Protocol Last Admin: 01/15/24 08:07 Dose: 12.5 mg Documented By: MARTIN Labs 01/15/24 05:35 01/15/24 05:35 Labs: Laboratory Results - last 24 hr 01/14/24 01/14/24 01/15/24 15:31 21:04 05:35 MCV 93.1 92.5 MCH 30.2 30.3 MCHC 32.4 32.7 RDW 16.2 H 16.1 H Plt Count 134 L D 128 L MPV 12.7 H 12.5 H Immature Gran % (Auto) 0.1 0.3 Neut % (Auto) 54.7 51.0 Lymph % (Auto) 32.2 35.0 [place] % (Auto) 10.0 11.1 H Eos % (Auto) 2.4 2.2 Baso % (Auto) 0.6 0.4 Lymph # (Auto) 2.3 2.4 [place] # (Auto) 0.7 0.8 Eos # (Auto) 0.2 0.2 Baso # (Auto) 0.0 0.0 Abs Immat Gran (auto) 0.01 0.02 Absolute Neuts (auto) 3.9 3.5 Absolute Nucleated RBC 0.000 0.000 Nucleated RBC % (auto) 0.0 0.0 D-Dimer High Sensitivty 486 Anion Gap 8 L 10 L Estim Creat Clear Calc 71.7 65.0 Estimated GFR > 60 > 60 Random Glucose 95 92 Calcium 8.9 D 8.8 Total Bilirubin 0.5 Direct Bilirubin 0.3 AST 45 H ALT 39 H Alkaline Phosphatase 71 Troponin I High Sens 30.0 H 25.0 H B-Natriuretic Peptide 1181 H Total Protein 6.0 L Albumin 3.1 L Assessment and Plan (1) Atrial fibrillation: Status: Acute Plan 53F PMH hfref s/p icd, pafib, hld, mood disorder presented with sob acute on chronic hfref iv lasix, echo, entresto, aldactone mood disorder lamictal olanzapine cymbalta pafib eliquis dvt prophylaxis - eliquis full code reason for continued hospitalization:iv diuresis Quality Stroke Does the patient have a stroke diagnosis?: No VTE Prior VTE?: No VTE Risk Level:: Medical - moderate - high VTE Device Contraindication: Treatment Not Indicated VTE Drug Contraindication: N/A - Med Ordered
--- NOTE | 2024-01-15 12:59 | MHC.CM.PN ---
PT REPORTS SHE LIVES WITH HER SON AND IS INDEPENDENT WITH CARE SHE HAS NO SERVICES AND NO DME PT DECLINES A HCP PCP: PAVEL BONDS DCP: HOME NO SERVICES VIA PRIVATE TRANSPORT
--- NOTE | 2024-01-15 13:42 | PM.EVENT ---
Event Note Date of Service: 01/15/24 Event Note: hypotension due to meds and chf not sepsis Time Spent With Patient Time: Total time managing care of this patient today ____ minutes.
[2024-01-15 13:49] VITALS: BP 90/50; PULSE 74; RESP 12; TEMP 36.5; O2SAT 97
--- NOTE | 2024-01-15 13:56 | PC.NURSE ---
This Rn reached out to provider d/t pt BP being 88/56, pt remains asymptomatic. At this time no new orders placed, per provider may need to consider holding entresto and aldactone in future. Pt notified to alert staff of any changes. At this time pt is independently ambulating to the bathroom
[2024-01-15 17:48] VITALS: BP 90/64; PULSE 76; RESP 16
--- NOTE | 2024-01-15 17:49 | PC.NURSE ---
pt aox4, no distress or discomfort. pt ate dinner well. BP remains soft 90/64. MD is aware. No lasix is ordered for tonight. IV patent and asymptomatic. awaiting bed assignment
--- NOTE | 2024-01-15 17:50 | MHC.EDTECH ---
pt ate 100% of dinner, 240cc of frantz liborio
--- NOTE | 2024-01-15 19:20 | PC.NURSE ---
Assumed care of this pt at 19:00. PT currently laying in bed, eyes closed and appears to be sleeping. Resp even and unlabored. Plan of care ongoing.
[2024-01-15 21:25] VITALS: BP 115/72; PULSE 88; RESP 18; TEMP 36.4; O2SAT 96
--- NOTE | 2024-01-15 21:26 | PC.NURSE ---
Report given to ABELINO Briceño.
[2024-01-15] MEDS: OLANZapine 10 MG TABLET 20 MG PO (21:38)
[2024-01-15] MEDS: Mirtazapine 30 MG TABLET PO (21:39)
--- NOTE | 2024-01-15 21:47 | PC.NURSE ---
Due to BPs trending soft, Dr. Verdugo contacted re: evening dose of Valsartan. Ok to hold per Dr. Verdugo.
[2024-01-15 22:21] VITALS: BP 102/69; PULSE 83; RESP 16; TEMP 36.7; O2SAT 94
[2024-01-15 22:24] VITALS: BMI 23.9
[2024-01-16 03:32] VITALS: BP 92/68; PULSE 77; RESP 18; TEMP 36.1; O2SAT 93
[2024-01-16 03:49] VITALS: BP 98/78
[2024-01-16 06:09] LABS: Hematocrit 40.8 % (37.0-47.0); Hemoglobin 13.2 g/dl (12.0-16.0); Mean Corpuscular HGB Conc 32.4 g/dl (31.0-35.0); Mean Corpuscular Hemoglobin 30.1 pg (27.0-33.0); Mean Corpuscular Volume 93.2 fL (80.0-98.0); Mean Platelet Volume 12.2 fL (9.4-12.3); Platelet Count 144 X10*3/uL (160-400); Red Blood Count 4.38 X10*6/uL (4.20-5.50); Red Cell Distribution Width 15.9 % (11.0-16.0); White Blood Count 7.5 X10*3/uL (4.8-10.8)
[2024-01-16 06:21] LABS: Anion Gap 10 (12-20); Blood Urea Nitrogen 12 mg/dL (9-16); Calcium 8.8 mg/dL (8.4-10.2); Carbon Dioxide 31 mmol/L (22-29); Chloride 106 mmol/L (96-108); Creatinine Clr Calc Pharmacy 51.4; Estimated Glomerular Filt Rate 46; Glucose Fasting 100 mg/dL (60-99); Magnesium 1.8 mg/dL (1.6-2.6); Sodium 143 mmol/L (135-145)
[2024-01-16 06:24] LABS: B Type Natriuretic Peptide 922 pg/mL (<100)
[2024-01-16 07:28] VITALS: BP 99/77; PULSE 88; RESP 14; TEMP 36.5; O2SAT 100
[2024-01-16] MEDS: Spironolactone 25 MG TABLET 12.5 MG PO (07:32)
[2024-01-16] MEDS: 0.9 % Sodium Chloride Flush 3 ML SYRINGE IVFLUSH (07:32)
[2024-01-16] MEDS: Furosemide 40 MG/4 ML VIAL IVPUSH (07:32)
[2024-01-16] MEDS: lamoTRIgine 100 MG TABLET PO (07:33)
[2024-01-16] MEDS: Sacubitril/Valsartan 49/51 1 TAB TABLET PO (07:33)
[2024-01-16] MEDS: DULoxetine HCl 60 MG CAPSULE.DR PO (07:33)
[2024-01-16] MEDS: Apixaban 5 MG TABLET PO (07:33)
--- NOTE | 2024-01-16 08:55 | PM.DS ---
DS: Providers Provider Date of Service: 01/16/24 Date of admission: 01/14/24 20:30 Primary care physician: Cyndee Jaquez MD DS: Diagnosis Discharge Diagnosis (1) Atrial fibrillation: Status: Acute DS: Summary Hospital Course Hospital Course: from initial hpi: 53-year-old female with pertinent history of congestive heart failure with reduced ejection fraction s/p ICD, paroxysmal atrial fibrillation on Eliquis, mixed hyperlipidemia, mood disorder who presents to the emergency department for evaluation of dyspnea. Patient states that dyspnea started 5 days prior to presentation. It is worse with exertion. Denies orthopnea but does endorse paroxysmal nocturnal dyspnea. She denies fever, chills, cough. No chest discomfort or palpitations. Patient has poor insight into her medical problems but states she is compliant with home medications. No abdominal discomfort, changes in urinary or bowel habits. The emergency department, imaging concerning for vascular congestion with cardiomegaly and Lesley B lines. BNP found to be elevated. hospital course: Patient was admitted for acute on chronic CHF with reduced ejection fraction. She was treated with IV Lasix, diuresed well and symptoms returned to baseline. at discharge will start on lasix 20mg daily for maintenance. She was continued on Entresto, Aldactone. Echocardiogram showed EF of 15-20%, RV dysfunction, moderate to severe MR, grade 2 diastolic dysfunction. Patient does report an underlying diagnosis of sarcoidosis. For mood disorder was continued on Lamictal, olanzapine, Cymbalta. For paroxysmal atrial fibrillation was continued on Eliquis. Patient is feeling better will be discharged home. Time Attestation Discharge Coordination Time (in mins): 35 Quality: Safe Use of Opioids Does Pt have an Active Cancer Diagnosis on the Problem List?: No Quality: Stroke Does the patient have a stroke diagnosis?: No Physical Exam Vital Signs: Vital Signs: Last Vital Signs Temp 97.7 F 01/16/24 07:28 Pulse 88 01/16/24 07:28 Resp 14 01/16/24 07:28 BP 99/77 01/16/24 07:28 Pulse Ox 100 01/16/24 07:28 O2 Del Method Room Air 01/16/24 07:28 O2 Flow Rate 95 01/14/24 19:55 BMI result Body Mass Index 23.9 General: AO X 3, no acute distress Resp: CTA bilateral, no accessory muscles used CVS: S1,S2,RRR GI: soft, non tender, non distended Neuro: motor grossly intact, alert Psych: appropriate affect, appropriate insight DS: Data Data Completed and Pending Labs on day of discharge: Laboratory Results - last 24 hr 01/16/24 05:43 WBC 7.5 RBC 4.38 Hgb 13.2 Hct 40.8 MCV 93.2 MCH 30.1 MCHC 32.4 RDW 15.9 Plt Count 144 L MPV 12.2 Absolute Nucleated RBC 0.000 Nucleated RBC % (auto) 0.0 Sodium 143 Potassium 4.0 Chloride 106 Carbon Dioxide 31 H Anion Gap 10 L BUN 12 Creatinine 1.23 Estim Creat Clear Calc 51.4 Estimated GFR 46 Fasting Glucose 100 H Calcium 8.8 Magnesium 1.8 B-Natriuretic Peptide 922 H Discharge Plan Discharge Anticipated Discharge Date/Time: 01/16/24 08:53 Patient Disposition: Home, Self-Care Discharge Diagnosis: chf Referrals: Cyndee Jaquez MD [Primary Care Provider] - 1 Week Discharge Medications: New furosemide [Lasix] 20 mg tablet 20 mg PO DAILY Qty: 90 0RF Continued clonidine HCl 0.1 mg tablet 0.1 mg PO BID PRN (Reason: Anxiety) spironolactone 25 mg tablet 12.5 mg PO DAILY mirtazapine 30 mg tablet 30 mg PO BEDTIME olanzapine 20 mg tablet 20 mg PO BEDTIME lamotrigine 100 mg tablet 100 mg PO DAILY duloxetine 60 mg capsule,delayed release(DR/EC) 60 mg PO DAILY Eliquis 5 mg tablet 5 mg PO BID Entresto 49-51 mg tablet 1 tab PO BID Discharge Orders: Discharge Order (Routine); Ordered 01/16/24 Ordered By: Catrachito Funez Diet: Advance to usual diet Activity on Discharge: As tolerated Stand Alone Forms: Patient Portal Discharge page Care Plan Goals: recovery Health Concerns: chf Plan of Treatment: low dose lasix maintence, follow up with cardiology Assessment: see above
--- NOTE | 2024-01-16 09:13 | MHC.CM.PN ---
PT WILL DC HOME TODAY WITH NO SERVICES VIA PRIVATE TRANSPORT
== END 2024-01-16 13:04 | disposition home or self-care (01) | DRG 194 ==
LOC: HO.ED 20:33 → HO.EDOVER 20:34 → HO.S3 01-15 20:42
PROVIDERS: Physician Assistant Medical; Admitting Provider Student in an Organized Health Care Education/Training Program; Emergency Provider Student in an Organized Health Care Education/Training Program; PCP Internal Medicine; Visit Provider Internal Medicine
DX: I50.23 Acute on chronic systolic (congestive) heart failure (principal); I95.2 Hypotension due to drugs; D86.9 Sarcoidosis, unspecified; E78.2 Mixed hyperlipidemia; F17.210 Nicotine dependence, cigarettes, uncomplicated; I34.0 Nonrheumatic mitral (valve) insufficiency; I48.0 Paroxysmal atrial fibrillation; F39 Unspecified mood [affective] disorder; Z71.6 Tobacco abuse counseling; Z95.810 Presence of automatic (implantable) cardiac defibrillator; Z79.01 Long term (current) use of anticoagulants; Z79.899 Other long term (current) drug therapy
CPT/HCPCS: 36415; 71046; 80048; 80076; 83735; 83880; 84484; 85025; 85027; 85379; 93005; 93306; 99285; J1940; Q9957

== ENCOUNTER → 2024-01-14 14:49 | Outpatient (BNV) | payer OTHER, SELFPAY | PROVIDERS: Admitting Provider Student in an Organized Health Care Education/Training Program; Emergency Provider Student in an Organized Health Care Education/Training Program; PCP Internal Medicine; Visit Provider Internal Medicine Cardiovascular Disease | DX: R06.02 Shortness of breath (principal) | CPT/HCPCS: 93010 ==

== ENCOUNTER 2024-01-14 20:30 | Outpatient (BNV) | payer OTHER, SELFPAY | END 2024-01-15 07:00 | PROVIDERS: Admitting Provider Student in an Organized Health Care Education/Training Program; Emergency Provider Student in an Organized Health Care Education/Training Program; PCP Internal Medicine; Visit Provider Internal Medicine Cardiovascular Disease | DX: I34.0 Nonrheumatic mitral (valve) insufficiency (principal) | CPT/HCPCS: 93306 ==

== ENCOUNTER → 2024-01-14 20:30 | Outpatient (BNV) | payer OTHER, SELFPAY | PROVIDERS: Admitting Provider Student in an Organized Health Care Education/Training Program; Emergency Provider Student in an Organized Health Care Education/Training Program; PCP Internal Medicine; Visit Provider Student in an Organized Health Care Education/Training Program | DX: I48.91 Unspecified atrial fibrillation (principal); I50.9 Heart failure, unspecified | CPT/HCPCS: 99222; 99233; 99239; 99499 ==

== ENCOUNTER 2024-02-13 14:31 | Outpatient (REF) | payer OTHER, SELFPAY ==
[2024-02-13 15:49] LABS: Alanine Aminotransferase 24 U/L (0-31); Albumin Level 3.3 g/dL (3.5-5.0); Alkaline Phosphatase 81 U/L (39-117); Anion Gap 10 (12-20); Aspartate Amino Transferase 30 U/L (5-31); Bilirubin Total 0.5 mg/dL (0.0-1.0); Blood Urea Nitrogen 13 mg/dL (9-16); Calcium 9.4 mg/dL (8.4-10.2); Carbon Dioxide 28 mmol/L (22-29); Chloride 109 mmol/L (96-108); Estimated Glomerular Filt Rate > 60; Glucose Random 77 mg/dL (60-115); Magnesium 1.8 mg/dL (1.6-2.6); Sodium 143 mmol/L (135-145); Total Protein 6.6 g/dL (6.5-8.0)
== END 2024-02-13 14:32 | disposition home or self-care (01) ==
LOC: HO.LAB 14:31
PROVIDERS: PCP Internal Medicine; Visit Provider Internal Medicine Cardiovascular Disease
DX: I42.9 Cardiomyopathy, unspecified (principal)
CPT/HCPCS: 36415; 80053; 83735

== ENCOUNTER 2024-07-19 13:36 | Emergency (ER) | payer OTHER, SELFPAY ==
[2024-07-19 13:44] VITALS: BP 145/101; PULSE 108; RESP 20; TEMP 37; O2SAT 98; BMI 24.3
--- NOTE | 2024-07-19 13:45 | ED_ITS ---
HPI - General Adult General Chief complaint: General Medical Stated complaint: Abdominal Pain Time Seen by Provider: 07/19/24 14:33 Source: patient and RN notes reviewed Mode of arrival: ambulatory Limitations: no limitations History of Present Illness ED Provider: Renay Lowe PA-C HPI narrative: This is a 54-year-old female, with a history of atrial fibrillation on Eliquis, and CHF, who presents emergency department with complaints of abdominal bloating, urinary frequency and urgency x3 days. She also endorses dark colored urine. Denies hematuria. She denies any fevers, chills, chest pain, shortness of breath, vomiting, diarrhea or nausea. Denies any back pain. No urinary retention. Hx of UTIs in the past. No other complaints or concerns at this time. MD complaint: Urinary sxs Onset (ago): day(s) Radiation: non-radiation Relieving factors: none Exacerbating factors: none Associated symptoms: denies other symptoms Treatments prior to arrival: none Related Data Home Medications ?Medication ?Instructions ?Recorded ?Confirmed apixaban 5 mg tablet (Eliquis) 5 mg PO BID 01/14/24 01/14/24 clonidine HCl 0.1 mg tablet 0.1 mg PO BID PRN Anxiety 01/14/24 01/14/24 duloxetine 60 mg capsule,delayed 60 mg PO DAILY 01/14/24 01/14/24 release lamotrigine 100 mg tablet 100 mg PO DAILY 01/14/24 01/14/24 mirtazapine 30 mg tablet 30 mg PO BEDTIME 01/14/24 01/14/24 olanzapine 20 mg tablet 20 mg PO BEDTIME 01/14/24 01/14/24 sacubitril 49 mg-valsartan 51 mg 1 tab PO BID 01/14/24 01/14/24 tablet (Entresto) spironolactone 25 mg tablet 12.5 mg PO DAILY 01/14/24 01/14/24 Previous Rx's ?Medication ?Instructions ?Recorded furosemide 20 mg tablet (Lasix) 20 mg PO DAILY #90 tabs 01/16/24 cefuroxime axetil 250 mg tablet 250 mg PO BID 7 days #14 tabs 07/19/24 Allergies Allergy/AdvReac Type Severity Reaction Status Date / Time ibuprofen [From Motrin] Allergy Unknown HIVES/STOMACH Verified 07/19/24 13:47 UPSET Review of Systems 2 Review of Systems: Yes all other systems are reviewed and are negative Constitutional: Constitutional: Reports as per [facility] Past Medical History Medical History Mood disorder Atrial fibrillation Congestive heart failure Sarcoidosis Cardiac defibrillator in place Social History Social History Household Members: Family Household Members Other:: son Housing: Apartment Do you presently have visiting nurse or other home services: No Alcohol intake: former Patient Tobacco Use Status: Current everyday Tobacco user Tobacco use type: Cigarette Cigarettes Per Day: 2 Second Hand Smoke Exposure: No Substance Use Type: Marijuana Advance Directives: No Advance Directives Information Provided: No Do you have a plan to hurt others: No Plan service: No Physical Exam ED Vital Signs: Vital Signs - 24 hr 07/19/24 13:44 07/19/24 14:00 Temperature 98.6 F 97.1 F Pulse Rate 108 H 60 Respiratory Rate 20 17 Blood Pressure 145/101 H 119/72 Pulse Oximetry 98 96 Oxygen Delivery Method Room Air Room Air BMI result Body Mass Index 24.3 Const General: cooperative, comfortable and no acute distress Orientation/consciousness: patient oriented x3 Limitations: no limitations HENMT Head: Yes normal to inspection, Yes normocephalic and Yes atraumatic Ears: hearing grossly normal bilaterally General nose exam: Normal external nose present Face and sinus: Yes normal facial exam Mouth: Normal oral and palatal mucosa present, oropharynx normal and moist mucous membranes Throat: Yes posterior oropharynx normal Eyes General: appearance normal, both eyes and all related structures Eyelids: Yes eyelids normal Conjunctivae: conjunctivae normal Sclerae: sclerae normal Pupils: Equal, round and reactive pupils present EOM: EOMs intact bilaterally Neck Neck: Yes normal visual inspection, Yes full ROM and Yes no lymphadenopathy Lymphatic: no lymphadenopathy noted Chest Chest palpation & inspection: normal inspection of the chest Resp Effort & Inspection: normal respiratory effort and able to speak in complete sentences Auscultation: clear to auscultation bilaterally, no crackles, no rales, no rhonchi and no wheezes Cardio Rate: regular rate Rhythm: regular rhythm Heart sounds: S1 normal heart sound present and S2 normal heart sound present GI Other: ABd is soft, nontender nondistended. Normoactive bowel sounds present. Inspection: Yes normal to inspection General: Yes no CVA tenderness Back/Spine/Pelvis Back: no CVA tenderness Skin General skin exam: no rashes or lesions noted Trauma: no lacerations or abrasions Wounds: no wounds Neuro General: patient oriented x3 and moves all extremities Cranial nerves: Yes Equal, round and reactive pupils present Extrem General: Yes normal to inspection Right upper extremity: normal to inspection Left upper extremity: normal to inspection Right lower extremity: normal to inspection Left lower extremity: normal to inspection Course Course Course Narrative: This is a Rapid Medical Examination (RME) performed by Purvi Motley PA-C in triage. Full HPI, ROS, assessment and treatment plan per primary provider in the Main ED. 54 yo female here for evla of right lower abdominal swelling and dark colored urine x3 days. states her stomach is lopsided . denies fever/ chills, dysuria, increased urinary freq/ urgency, N/V/D, constipation or abdominal pain. + abd soft, ND/NT. no rebound or guarding. normoactive bs x4. no noted abdominal swelling or distention on my examination. no CVAT. Plan: labs, UA Reevaluation(s) Reevaluation #1: Labs return, she has no leukocytosis, stable H&H. UA appears to be infected. Pt d/c on ceftin. Given return precautions. No CVAT or evidence of pylonephritis. Pt stable. Medical Decision Making Medical Decision Making [facility] Narrative: This is a 20-im[age]-vlh-female who presents to the ER with complaints of urinary frequency and urgency x 3 days. Also reports bloating. No fevers, chills, nausea, vomiting or diarrhea. On arrival, vital signs WNL. Pt is nontoxic appearing, under no acute distress. DDX including UTI, cysitis. Less likely pylonephritis, vaginitis, BEBE. Her abd is soft. She has no CVAT Plan: Labs, UA Differential Diagnosis Differential Diagnoses: The differential diagnosis associated with the presentation includes see above Admission/Observation Consideration of admission/observation: Escalation of care including admission/observation considered Lab Data MDM Lab Attestation statement: I reviewed the patient's lab results. 07/19/24 14:43 07/19/24 14:43 Labs: Lab Results 07/19/24 07/19/24 Range/Units 14:18 14:43 WBC 6.4 (4.8-10.8) X10*3/uL RBC 4.77 (4.20-5.50) X10*6/uL Hgb 14.3 (12.0-16.0) g/dl Hct 44.0 (37.0-47.0) % MCV 92.2 (80.0-98.0) fL MCH 30.0 (27.0-33.0) pg MCHC 32.5 (31.0-35.0) g/dl RDW 17.1 H (11.0-16.0) % Plt Count 107 L D (160-400) X10*3/uL MPV 12.9 H (9.4-12.3) fL Immature Gran % (Auto) 0.3 (0.0-0.4) % Neut % (Auto) 44.8 L (45-73) % Lymph % (Auto) 41.1 H (20-40) % [place] % (Auto) 12.1 H (2-11) % Eos % (Auto) 1.2 (0-4) % Baso % (Auto) 0.5 (0-2) % Lymph # (Auto) 2.6 (1.2-4.9) X10*3/uL [place] # (Auto) 0.8 (0.1-1.2) X10*3/uL Eos # (Auto) 0.1 (0.0-0.4) X10*3/uL Baso # (Auto) 0.0 (0.0-0.2) X10*3/uL Abs Immat Gran (auto) 0.02 (0.00-0.03) X10*3/uL Absolute Neuts (auto) 2.9 (2.0-8.3) x10*3/uL Absolute Nucleated RBC 0.000 (0.0-0.012) X10*3/uL Nucleated RBC % (auto) 0.0 (0.0-0.2) /100WBC Sodium 144 (135-145) mmol/L Potassium 3.8 (3.3-5.1) mmol/L Chloride 112 H (96-108) mmol/L Carbon Dioxide 24 (22-29) mmol/L Anion Gap 12 (12-20) BUN 15 (9-16) mg/dL Creatinine 0.93 (0.5-1.4) mg/dL Estim Creat Clear Calc 69.7 Estimated GFR > 60 Random Glucose 139 H (60-115) mg/dL Calcium 9.3 (8.4-10.2) mg/dL Magnesium 1.8 (1.6-2.6) mg/dL Total Bilirubin 1.0 (0.0-1.0) mg/dL AST 31 (5-31) U/L ALT 26 (0-31) U/L Alkaline Phosphatase 86 (39-117) U/L Total Creatine Kinase 63 (26-140) U/L Total Protein 6.1 L (6.5-8.0) g/dL Albumin 3.2 L (3.5-5.0) g/dL Lipase 14 (8-78) U/L Urine Color Dark Yellow Urine Appearance Cloudy Urine pH 5.5 (5.0-9.0) Ur Specific [place] >= 1.030 H (1.005-1.025) Urine Protein >=1000 (4+) H (Neg-Trace) mg/dL Urine Glucose (UA) 500 H (Negative) mg/dL Urine Ketones Trace (Negative) mg/dL Urine Blood Moderate (2+) H (Negative) Urine Nitrite Negative (Negative) Ur Leukocyte Esterase Negative (Negative) Urine RBC 3-5 H (0-2) /HPF Urine WBC 11-20 H (0-5) /HPF Ur Squamous Epith Cells 3-5 (0-2) /HPF Urine Bacteria 2+ (None Seen) Hyaline Casts 6-10 (0-2) /LPF Discharge Plan Discharge Clinical Impression: Urinary tract infection Patient Disposition: Home, Self-Care Instructions: Urinary Tract Infection in Women (ED) Additional Instructions: You were seen in the emergency department for urinary symptoms. Your urine appears to be infected, please take prescribed antibiotic as directed, finish the entire course even if your symptoms improve. Drink plenty of fluids and get plenty of rest. If any new or worsening symptoms occur including but not limited to chest pain, shortness for breath, worsening abdominal pain, please return for re-evaluation. Prescriptions: New cefuroxime axetil 250 mg tablet 250 mg PO BID 7 Days Qty: 14 0RF No Action clonidine HCl 0.1 mg tablet 0.1 mg PO BID PRN (Reason: Anxiety) spironolactone 25 mg tablet 12.5 mg PO DAILY mirtazapine 30 mg tablet 30 mg PO BEDTIME olanzapine 20 mg tablet 20 mg PO BEDTIME lamotrigine 100 mg tablet 100 mg PO DAILY duloxetine 60 mg capsule,delayed release(DR/EC) 60 mg PO DAILY Eliquis 5 mg tablet 5 mg PO BID Entresto 49-51 mg tablet 1 tab PO BID furosemide [Lasix] 20 mg tablet 20 mg PO DAILY Qty: 90 0RF Discharge Date/Time: 07/19/24 16:46 Print Language: Georgian
[2024-07-19 14:00] VITALS: BP 119/72; PULSE 60; RESP 17; TEMP 36.2; O2SAT 96
[2024-07-19 14:28] LABS: Appearance Urine Cloudy; Color Urine Dark Yellow; Glucose Urine UA 500 mg/dL (Negative); Leukocyte Esterase Urine Negative (Negative); Nitrite Urine Negative (Negative); PH 5.5 (5.0-9.0); Specific Gravity - Urine >= 1.030 (1.005-1.025); UMIC TRIGGER UACC YES; Urine Blood Moderate (2+) (Negative); Urine Ketones Trace mg/dL (Negative); Urine Protein >=1000 (4+) mg/dL (Neg-Trace)
[2024-07-19 14:44] LABS: Bacteria Urine 2+ (None Seen); UACC Culture Trigger YES
[2024-07-19 14:50] LABS: MANUAL DIFF FLAG NO
[2024-07-19 14:52] LABS: Basophils Percent Auto 0.5 % (0-2); Eosinophils Absolute Auto 0.1 X10*3/uL (0.0-0.4); Eosinophils Percent Auto 1.2 % (0-4); Hemoglobin 14.3 g/dl (12.0-16.0); Imm Gran Abs Auto 0.02 X10*3/uL (0.00-0.03); Imm Gran Pct Auto 0.3 % (0.0-0.4); Lymphocytes Absolute Auto 2.6 X10*3/uL (1.2-4.9); Lymphocytes Percent Auto 41.1 % (20-40); Mean Corpuscular HGB Conc 32.5 g/dl (31.0-35.0); Mean Corpuscular Volume 92.2 fL (80.0-98.0); Mean Platelet Volume 12.9 fL (9.4-12.3); Monocytes Absolute Auto 0.8 X10*3/uL (0.1-1.2); Monocytes Percent Auto 12.1 % (2-11); Neutrophils Absolute Auto 2.9 x10*3/uL (2.0-8.3); Neutrophils Percent Auto 44.8 % (45-73); Red Blood Count 4.77 X10*6/uL (4.20-5.50); Red Cell Distribution Width 17.1 % (11.0-16.0); White Blood Count 6.4 X10*3/uL (4.8-10.8)
[2024-07-19 15:02] LABS: Platelet Count 107 X10*3/uL (160-400)
[2024-07-19 15:07] LABS: Alanine Aminotransferase 26 U/L (0-31); Albumin Level 3.2 g/dL (3.5-5.0); Alkaline Phosphatase 86 U/L (39-117); Anion Gap 12 (12-20); Aspartate Amino Transferase 31 U/L (5-31); Blood Urea Nitrogen 15 mg/dL (9-16); Calcium 9.3 mg/dL (8.4-10.2); Carbon Dioxide 24 mmol/L (22-29); Chloride 112 mmol/L (96-108); Creatinine Clr Calc Pharmacy 69.7; Estimated Glomerular Filt Rate > 60; Glucose Random 139 mg/dL (60-115); Lipase 14 U/L (8-78); Magnesium 1.8 mg/dL (1.6-2.6); Potassium 3.8 mmol/L (3.3-5.1); Sodium 144 mmol/L (135-145); Total Protein 6.1 g/dL (6.5-8.0)
[2024-07-19 16:00] VITALS: BP 106/72; PULSE 81; RESP 18; TEMP 36.6; O2SAT 96
== END 2024-07-19 16:46 | disposition home or self-care (01) ==
PROVIDERS: Physician Assistant Medical; Emergency Provider Emergency Medicine; PCP Internal Medicine
DX: N39.0 Urinary tract infection, site not specified (principal); I48.91 Unspecified atrial fibrillation; R35.0 Frequency of micturition; Z79.899 Other long term (current) drug therapy; Z79.01 Long term (current) use of anticoagulants
CPT/HCPCS: 36415; 80053; 81001; 82550; 83690; 83735; 85025; 87086; 99283

== ENCOUNTER 2025-02-16 17:18 | Emergency (ER) | payer OTHER, SELFPAY ==
--- NOTE | ~2025-02-16 | CT_ITS ---
CLINICAL HISTORY: jaw infection CT maxillofacial with contrast Comparison: None Findings: No acute fractures. No dislocations. Temporomandibular joints are intact. Periapical lucencies noted in the left maxillary and mandibular dentition, consistent with periodontal disease. The periapical lucencies involving the canine and 1st premolar tooth demonstrate erosive changes along the buccal surface series 3, image 61. There is diffuse regional left perimandibular soft tissue edema with thickening and fluid stranding tracking along the anterior mandible and submental spaces. Suspect phlegmonous changes series 2, image 67 in the left perimandibular tissues. Possible early abscess formation along the anteroinferior mandible best seen on coronal series 7, image 58, measuring 4.7 x 1.4 cm. Edema extends along the left buccal and parotid spaces. Thickening of the platysma. Paranasal sinuses and mastoid air cells clear. Unremarkable orbital contents. Visualized intracranial contents are within normal limits. Reversal of the cervical lordosis. Anterior cervical discectomy and fusion changes at C6-C7. No foreign bodies. Hypoplastic right vertebral artery. IMPRESSION: 1. Odontogenic abscesses pronounced in the left mandibular canine and 1st premolar teeth. 2. Associated regional cellulitis, phlegmon and early abscess formation as described. This document has been electronically signed by: Wilbur Rojo MD on 02/16/2025 20:22:49
[2025-02-16 17:31] VITALS: BP 100/68; PULSE 92; RESP 18; TEMP 36.3; O2SAT 95; BMI 21.5
--- NOTE | 2025-02-16 17:32 | ED.GENADULT ---
HPI - General Adult General Chief complaint: Dental/Oral Stated complaint: swollen jaw, no injury Time Seen by Provider: 02/16/25 18:13 History of Present Illness HPI narrative: 54-year-old female with a history of AFib on Eliquis, systolic heart failure with a ejection fraction of 15-20% s/p defibrillator, sarcoidosis, mood disorder who presents with jaw swelling since this morning. Patient states she has been having dental pain over the past 2-3 days, she woke this morning with swelling along inferior jawline in relation to the chin. Denies inability to range the jaw or fever. Related Data Home Medications ?Medication ?Instructions ?Recorded ?Confirmed apixaban 5 mg tablet (Eliquis) 5 mg PO BID 01/14/24 01/14/24 clonidine HCl 0.1 mg tablet 0.1 mg PO BID PRN Anxiety 01/14/24 01/14/24 duloxetine 60 mg capsule,delayed 60 mg PO DAILY 01/14/24 01/14/24 release lamotrigine 100 mg tablet 100 mg PO DAILY 01/14/24 01/14/24 mirtazapine 30 mg tablet 30 mg PO BEDTIME 01/14/24 01/14/24 olanzapine 20 mg tablet 20 mg PO BEDTIME 01/14/24 01/14/24 sacubitril 49 mg-valsartan 51 mg 1 tab PO BID 01/14/24 01/14/24 tablet (Entresto) spironolactone 25 mg tablet 12.5 mg PO DAILY 01/14/24 01/14/24 Previous Rx's ?Medication ?Instructions ?Recorded furosemide 20 mg tablet (Lasix) 20 mg PO DAILY #90 tabs 01/16/24 cefuroxime axetil 250 mg tablet 250 mg PO BID 7 days #14 tabs 07/19/24 clindamycin HCl 150 mg capsule 450 mg (3 x 150 mg) PO TID #90 caps 02/16/25 Allergies Allergy/AdvReac Type Severity Reaction Status Date / Time ibuprofen [From Motrin] Allergy Unknown HIVES/STOMACH Verified 07/19/24 13:47 UPSET bupropion [From Wellbutrin] Allergy Rash Verified 02/16/25 17:35 Review of Systems Review of Systems: Yes all other systems are reviewed and are negative Constitutional: Constitutional: Denies fatigue and Denies fever(s) ENT: Reports facial pain, Reports mouth pain, Denies sore throat, Denies throat swelling and Denies tongue swelling Cardiovascular: Cardiovascular: Denies chest pain and Denies dyspnea Respiratory: Respiratory: Denies cough and Denies dyspnea Gastrointestinal: Gastrointestinal: Denies abdominal pain, Denies nausea and Denies vomiting Endocrine: Endocrine: Denies fatigue Allergic/Immunologic: Allergic/Immunologic: Denies throat swelling and Denies tongue swelling PMFSH Past Medical History Attestation statement: The following information was validated with the patient. Medical History Mood disorder Atrial fibrillation Congestive heart failure Sarcoidosis Cardiac defibrillator in place Social History Social History Household Members: Family Household Members Other:: son Housing: Apartment Do you presently have visiting nurse or other home services: No Unable to assess alcohol history related to: Unknown Alcohol intake: former Patient Tobacco Use Status: Current everyday Tobacco user Tobacco use type: Cigarette Cigarettes Per Day: 2 Second Hand Smoke Exposure: No Use of substances other than those prescribed or required for medical reasons: Unknown Substance Use Type: Marijuana Advance Directives: No Advance Directives Information Provided: Yes Patient : No service: No Physical Exam ED Vital Signs: Vital Signs - 24 hr 02/16/25 17:31 02/16/25 18:28 Temperature 97.3 F Pulse Rate 92 75 Respiratory Rate 18 16 Blood Pressure 100/68 111/68 Pulse Oximetry 95 94 Oxygen Delivery Method Room Air Room Air BMI result Body Mass Index 21.5 Const Other: Alert appears older than stated age Orientation/consciousness: patient oriented x3 HENMT Other: Oropharynx is clear, uvula midline, no trismus no drooling. Bilateral smita within sublingual space, no sublingual fluctuance. Overall very poor dentition, the patient is missing multiple teeth. Along the inferior gum tooth margin, there was adherent plaque/purulence over many of the teeth, the entire exam was uncomfortable for the patient. Neck Other: Anterior cervical lymphadenopathy Resp Effort & Inspection: normal respiratory effort Cardio Other: Normal peripheral perfusion Skin Other: Warm dry no rash Neuro General: patient oriented x3, gait normal, no focal motor deficits and CN's II-XI intact bilaterally Psych Other: Cooperative Course Course Course Narrative: This is an RME: Additional HPI, ROS, PE not included below will be deferred to primary provider. RME assessment and note performed by: Renay Serrano PA-C This is a 54-year-old female, with a history of atrial fibrillation with defib on Eliquis, and CHF, who presents to the ER with complaints of left lower dental pain and swelling. Pt with left sided facial swelling and ttp. no obvious dental abscess but decay noted. Plan: Labs, +/- diagnostic imaging, deferring to primary provider. Medications Administered Discontinued Medications Generic Name Dose Route Start Last Admin Trade Name Freq PRN Reason Stop Dose Admin Sodium Chloride 1,000 mls @ 999 mls/hr 02/16/25 18:30 02/16/25 18:53 Ns IV 02/16/25 19:30 Not Given .Q1H1M OSIEL Iohexol 85 ml 02/16/25 19:27 02/16/25 19:28 Iohexol 350 Mg/Ml 100 Ml Infus..Btl IV 02/16/25 19:28 85 ml ONCE ONE Administration Medical Decision Making Medical Decision Making MDM Narrative: 54-year-old female with a history of AFib on Eliquis, systolic heart failure with a ejection fraction of 15-20% s/p defibrillator, sarcoidosis, mood disorder who presents with jaw swelling since this morning. Patient states she has been having dental pain over the past 2-3 days, she woke this morning with swelling along inferior jawline in relation to the chin. Denies inability to range the jaw or fever. Problem: Significant cardiac illness History: Per patient I have considered the following differential diagnoses: Leodan angina, dental infection, osteomyelitis, malignancy Plan: The patient does not have evidence of Leodan angina on exam. I do believe the swelling is likely secondary to dental infection, this could be osteomyelitis, although she is not known to be immunocompromised. This could also be malignancy. We will be obtaining CT max face. Adding on blood cultures and a lactic acid, I foresee her requiring antibiotic therapy. Labs: Slight leukocytosis, not anemic, no electrolyte abnormalities, CT max face: IMPRESSION: 1. Odontogenic abscesses pronounced in the left mandibular canine and 1st premolar teeth. 2. Associated regional cellulitis, phlegmon and early abscess formation as described. Lab Data 02/16/25 17:52 02/16/25 17:52 Labs: Lab Results 02/16/25 02/16/25 Range/Units 17:52 18:52 WBC 11.0 H (4.8-10.8) X10*3/uL RBC 4.99 (4.20-5.50) X10*6/uL Hgb 15.8 (12.0-16.0) g/dl Hct 47.5 H (37.0-47.0) % MCV 95.2 (80.0-98.0) fL MCH 31.7 (27.0-33.0) pg MCHC 33.3 (31.0-35.0) g/dl RDW 14.1 (11.0-16.0) % Plt Count 106 L (160-400) X10*3/uL MPV 11.8 (9.4-12.3) fL Immature Gran % (Auto) 0.3 (0.0-0.4) % Neut % (Auto) 64.4 (45-73) % Lymph % (Auto) 23.2 (20-40) % Cobb % (Auto) 11.4 H (2-11) % Eos % (Auto) 0.5 (0-4) % Baso % (Auto) 0.2 (0-2) % Lymph # (Auto) 2.5 (1.2-4.9) X10*3/uL Cobb # (Auto) 1.3 H (0.1-1.2) X10*3/uL Eos # (Auto) 0.1 (0.0-0.4) X10*3/uL Baso # (Auto) 0.0 (0.0-0.2) X10*3/uL Abs Immat Gran (auto) 0.03 (0.00-0.03) X10*3/uL Absolute Neuts (auto) 7.1 (2.0-8.3) x10*3/uL Absolute Nucleated RBC 0.000 (0.0-0.012) X10*3/uL Nucleated RBC % (auto) 0.0 (0.0-0.2) /100WBC Sodium 139 (135-145) mmol/L Potassium 4.0 (3.3-5.1) mmol/L Chloride 106 (96-108) mmol/L Carbon Dioxide 25 (22-29) mmol/L Anion Gap 12 (12-20) BUN 10 (9-16) mg/dL Creatinine 0.97 (0.5-1.4) mg/dL Estim Creat Clear Calc 64.4 Estimated GFR 60 Random Glucose 115 (60-115) mg/dL Lactic Acid 1.0 (0.5-2.0) mmol/L Calcium 9.4 (8.4-10.2) mg/dL Total Bilirubin 0.7 (0.0-1.0) mg/dL AST 28 (5-31) U/L ALT 13 (0-31) U/L Alkaline Phosphatase 99 (39-117) U/L Total Protein 7.1 (6.5-8.0) g/dL Albumin 3.7 (3.5-5.0) g/dL Discharge Plan Discharge Clinical Impression: Dental abscess Patient Disposition: Home, Self-Care Instructions: Dental Abscess (ED) Additional Instructions: You were found to have multiple dental abscesses forming. You need to see an oral surgeon right away. I am providing you with contacts for some local facilities. Take the clindamycin as directed, you need to take a probiotic with the antibiotic, to help prevent diarrhea. It was crucial that you start calling to make an appointment for follow up. [facility] [phone] [facility] on [address] [place] [address] Oral surgeons [facility] [phone] [facility] [place] [phone] Prescriptions: New clindamycin HCl 150 mg capsule 450 mg PO TID Qty: 90 0RF No Action clonidine HCl 0.1 mg tablet 0.1 mg PO BID PRN (Reason: Anxiety) spironolactone 25 mg tablet 12.5 mg PO DAILY mirtazapine 30 mg tablet 30 mg PO BEDTIME olanzapine 20 mg tablet 20 mg PO BEDTIME lamotrigine 100 mg tablet 100 mg PO DAILY duloxetine 60 mg capsule,delayed release(DR/EC) 60 mg PO DAILY Eliquis 5 mg tablet 5 mg PO BID Entresto 49-51 mg tablet 1 tab PO BID furosemide [Lasix] 20 mg tablet 20 mg PO DAILY Qty: 90 0RF cefuroxime axetil 250 mg tablet 250 mg PO BID 7 Days Qty: 14 0RF Print Language: Jordanian
[2025-02-16 18:02] LABS: MANUAL DIFF FLAG NO
[2025-02-16 18:04] LABS: Basophils Percent Auto 0.2 % (0-2); Eosinophils Absolute Auto 0.1 X10*3/uL (0.0-0.4); Eosinophils Percent Auto 0.5 % (0-4); Hematocrit 47.5 % (37.0-47.0); Hemoglobin 15.8 g/dl (12.0-16.0); Imm Gran Abs Auto 0.03 X10*3/uL (0.00-0.03); Imm Gran Pct Auto 0.3 % (0.0-0.4); Lymphocytes Absolute Auto 2.5 X10*3/uL (1.2-4.9); Lymphocytes Percent Auto 23.2 % (20-40); Mean Corpuscular HGB Conc 33.3 g/dl (31.0-35.0); Mean Corpuscular Hemoglobin 31.7 pg (27.0-33.0); Mean Corpuscular Volume 95.2 fL (80.0-98.0); Mean Platelet Volume 11.8 fL (9.4-12.3); Monocytes Absolute Auto 1.3 X10*3/uL (0.1-1.2); Monocytes Percent Auto 11.4 % (2-11); Neutrophils Absolute Auto 7.1 x10*3/uL (2.0-8.3); Neutrophils Percent Auto 64.4 % (45-73); Platelet Count 106 X10*3/uL (160-400); Red Blood Count 4.99 X10*6/uL (4.20-5.50); Red Cell Distribution Width 14.1 % (11.0-16.0)
[2025-02-16 18:17] LABS: Alanine Aminotransferase 13 U/L (0-31); Albumin Level 3.7 g/dL (3.5-5.0); Alkaline Phosphatase 99 U/L (39-117); Anion Gap 12 (12-20); Aspartate Amino Transferase 28 U/L (5-31); Bilirubin Total 0.7 mg/dL (0.0-1.0); Blood Urea Nitrogen 10 mg/dL (9-16); Calcium 9.4 mg/dL (8.4-10.2); Carbon Dioxide 25 mmol/L (22-29); Chloride 106 mmol/L (96-108); Creatinine Clr Calc Pharmacy 64.4; Estimated Glomerular Filt Rate 60; Glucose Random 115 mg/dL (60-115); Sodium 139 mmol/L (135-145); Total Protein 7.1 g/dL (6.5-8.0)
[2025-02-16 18:28] VITALS: BP 111/68; PULSE 75; RESP 16; O2SAT 94
--- OUTSIDE RECORDS SUMMARY | 2025-02-16 18:28 | XMS_ITS | Clinical Summary ---
Author Organization [address] [facility] Address [address] [place] [address] Phone Care Team Providers Care Workers' Compensation Hearings Officer Name Role Phone Cyndee Jaquez MD Primary Care Provider [phone] Allergies Active Allergy Reactions Criticality Noted Date Comments Aspartame Rash 12/29/2013 Aspirin 04/17/2022 Bupropion Rash High 06/15/2015 rash Lisinopril Rash High 06/15/2015 rash Ibuprofen Rash High 11/17/2024 Medications apixaban (Eliquis) 5 mg tablet Take 1 tablet (5 mg total) by mouth 2 (two) times a day. 4 Active atorvastatin (LIPITOR) 40 mg tablet Take 1 tablet (40 mg total) by mouth 1 (one) time each day. 4 Active carvediloL (COREG) 6.25 mg tablet Take 1 tablet (6.25 mg total) by mouth 2 (two) times a day with meals. 4 Active cloNIDine (CATAPRES) 0.1 mg tablet Take 1 tablet (0.1 mg total) by mouth 1 (one) time each day if needed. 2 Active dapagliflozin propanediol (FARXIGA) 10 mg tablet Take 1 tablet (10 mg total) by mouth 1 (one) time each day. 4 Active furosemide (LASIX) 20 mg tablet Take 1 tablet (20 mg total) by mouth 1 (one) time each day. Active lamoTRIgine (LaMICtal) 100 mg tablet Take 1 tablet (100 mg total) by mouth 1 (one) time each day. 2 Active mirtazapine (REMERON) 30 mg tablet Take 1 tablet (30 mg total) by mouth 1 (one) time each day. 2 Active potassium chloride 20 mEq tablet extended release Take 1 tablet by mouth 1 (one) time each day. 4 Active sacubitriL-valsa rtan (Entresto) 49-51 mg per tablet Take 1 tablet by mouth 2 (two) times a day. 4 Active spironolactone (ALDACTONE) 25 mg tablet Take 0.5 tablets (12.5 mg total) by mouth 1 (one) time each day. TAKE 1/2 TABLET 4 Active hydrOXYzine pamoate (VISTARIL) 25 mg capsule Take 1 capsule (25 mg total) by mouth 3 (three) times a day if needed. 4 Active DULoxetine (CYMBALTA) [address] capsule Take 1 capsule (60 mg total) by mouth 1 (one) time each day. 4 Active umeclidinium-nadine anteroL (Anoro Ellipta) 62.5-25 mcg/actuation inhalerIndicatio ns:Pulmonary emphysema, unspecified emphysema type (CMS/HCC V24, CMS/HCC V28) Inhale 1 puff by mouth 1 (one) time each day. 3 each 4 5 11/17/19 26 Active albuterol HFA (Ventolin HFA) 90 mcg/actuation inhalerIndicatio ns:Pulmonary emphysema, unspecified emphysema type (CMS/HCC V24, CMS/HCC V28) INHALE 2 PUFFS BY MOUTH EVERY 6 HOURS NEEDED FOR WHEEZE OR FOR SHORTNESS OF BREATH 18 each 1 5 Active Active Problems Problem Noted Date Diagnosed Date NSVT (nonsustained ventricul ar tachycardia) (CMS/HCC V24, CMS/HCC V28) 04/01/2024 Overview (08/14/2024): Last Assessment & Plan: Previous runs of NSVT were likely in the setting of not being on her medications. I will continue to follow-up on device checks to make sure that she is not having recurrent VT. Continue current carvedilol for now. LV (left ventricular) mural thrombus 01/29/2024 Overview (09/27/2024): Anticoagulated with apixaban Assessment & Plan (12/15/2024 3:21 PM EST): There is no thrombus noted on recent echocardiogram. However, with severely reduced LVEF, we will continue her full anticoagulation with Eliquis. Assessment & Plan (09/27/2024 8:20 AM EST): There is no thrombus noted on recent echocardiogram. However, with severely reduced LVEF, we will continue her full anticoagulation with apixaban. Postmenopausal bleeding 05/03/2022 Overview (08/14/2024): Last Assessment & Plan: Explained would recommend US and if thin ES, no further intervention unless she had another episode of bleeding. If thickened, will plan for EMB vs hysteroscopy. She agrees to schedule this. Weight loss 05/03/2022 Overview (08/14/2024): Last Assessment & Plan: Will check TSH and refer to GI for colonoscopy given family history of colon cancer and unexplained weight loss. Hypertension 04/17/2022 Assessment & Plan (12/15/2024 3:20 PM EST): Blood pressure well-controlled today at 110/60. No changes to current medical therapies. Assessment & Plan (09/27/2024 8:19 AM EST): Blood pressure well-controlled on current doses of beta-angy, SGLT2, diuretic, MRA and ARNI. Continue Moderate dysplasia of cervix (TIERRA II) 04/17/2022 Overview (08/14/2024): January 2018 cold knife cone. 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, Dr. Wu Spanlger, however, given lack of PET response to extended immunosupp therapy, this diagnosis has been called into question Assessment & Plan (12/15/2024 3:11 PM EST): Patient has a history of sarcoidosis of the lung, was formally seeing Dr. Spangler in [place] but has since transitioned her care to [place] [facility]. Assessment & Plan (09/27/2024 8:14 AM EST): Unfortunately, the patient is no longer seeing Dr. Spangler in [place] given multiple no-shows. Will refer to Dr. Viet Edge at [facility]. Yvonne indicates that transportation to [place] will be much easier for her. I will also order the patient's high-resolution CT chest again as the patient did not have this completed on Dr. Hernandez's previous order. Coronary artery disease invo lving otoe-missouria coronary artery without angina pectoris 10/10/2015 Overview (09/27/2024): -Status post cardiac cath at [facility] on 04/12/2015 in workup of her cardiomyopathy showing 100% distal RPDA occlusion-chronic total occlusion, minor luminal irregularities are noted disease in the remaining coronaries, moderately elevated LVEDP Assessment & Plan (12/15/2024 3:10 PM EST): Has a history of coronary artery disease diagnosed after cardiac cath at [facility] on 04/12/2015 which showed 100% distal RPDA total chronic occlusion and minor luminal irregularities noted in the remaining coronary arteries. Patient is not complaining of any symptoms of coronary insufficiency. She is not on aspirin given her concomitant Eliquis use. Will continue on atorvastatin and carvedilol as prescribed. Assessment & Plan (09/27/2024 8:17 AM EST): Has no anginal symptoms to her current MET workload. Continue medical therapy including beta-angy, statin, ARB. She is not on an aspirin given concurrent apixaban use. 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 Franklin Salomon of Cardiology and Dr. Wu Spangler of Pulmonology-however this diagnosis came into question around [address] showed Abnormal scan in presumed fasting 18-FDG cardiac PET/CT evaluation for cardiac sarcoid showing diffuse FDG uptake sparing the inferiolateral wall where there is decreased perfusion in rest imaging consistent with scar. The perfusion abnormalities are slightly worse as described above, and FDG uptake has increased significantly since the prior scan. The pattern of diffuse FDG uptake remains. The patient was interviewed and indicated an adequate fast. Note that the perfusion defect follows a coronary artery distribution (LCX). Given known history of coronary artery disease, evaluation for ischemia may be warranted because increased FDG uptake may be seen also in the setting of ischemia. -Most recently, there has been questions asked to whether or not she has sarcoid at all given PET scanning showing no significant improvement in uptake on high doses of 2 agents-prednisone and methotrexate -She was sent to Dr Lemos at [facility] heart failure and transplant center who performed a right heart cath and EM Bx some time in the spring-which showed: Myocardium with minimal background collagen deposition and rare myocyte hypertrophy, Trichrome stain is performed on block A1, No inflammation and no granulomas on examined sections, immunohistochemistry for CD3 and CD68 shows no inflammation, no amyloid and no Iron deposition, Congo red and Iron special stains are evaluated; RHC: RA 5, PA 39//, PCWP 7, Ariane 3.5/1.9, TD 3.4/1.8, PVR 4.5 HESS on no diuretics Assessment & Plan (12/15/2024 3:20 PM EST): Patient with a history of HFrEF with an EF of 15 to 20% on most recent echo. She is status post ICD. She has established care at [facility] heart failure clinic with Dr. Villavicencio. She appears euvolemic on exam today. She should continue on GDMT including carvedilol, Farxiga, Entresto and spironolactone. Blood pressure remains soft at 110/60 today. Discussed with patient that reducing furosemide to as needed may allow for more robust blood pressure which may allow for increasing GDMT. Patient seems somewhat hesitant to make that change at this time. She will continue to follow- up with the [facility] heart failure clinic. Assessment & Plan (09/27/2024 8:19 AM EST): The patient is no longer established with the heart failure clinic up in [place] due to multiple no-shows of her appointments. She does admit that transportation is an issue even though we have filled out PT 1 forms for her in the past. As such, will refer her to the [facility] heart failure clinic. It is a challenge for her to get to [place] for the [facility] heart failure clinic. I feel that it is prudent for her to be established with the heart failure specialty team given how tenuous her status can be at times. For today, she appears to be well compensated. She does not appear to have excess volume on board. Her adventitious lung sounds are diffuse and sound to more pulmonary in etiology. As such, I am referring her to pulmonology in [place]. For now, continue ongoing GDMT including beta-angy, SGLT2 inhibitor, ARNI, MRA. She will remain on her current dose of diuretic. Unfortunately her device does not have heart failure metrics. Hyperlipidemia 10/10/2015 Assessment & Plan (12/15/2024 3:49 PM EST): The patient's LDL is somewhat above target on somewhat outdated lipid profile. If still elevated at next check, can increase lipitor. Assessment & Plan (09/27/2024 8:22 AM EST): Somewhat outdated lipid profile. Will add a lipid profile to her next labs to be completed at her convenience Sarcoidosis 10/10/2015 Overview (08/14/2024): Sees sarcoid center at [facility] [place]-but recently this diagnosis has come into question due to the fact that her PET studies in spite of being on two different immunosupp agents was still grossly positive -referred to Dr Lemos at [facility] CHF and transplant -EMBx negative but this doesn't fully rule out sarcoid, given lower diagnostic yield due to often patchy infiltration, but is telling -was supposed to have a repeat PET CT off of all immunosupp meds-unclear if that was ever done Assessment & Plan (09/27/2024 8:23 AM EST): Referral to [facility] pulmonary--Dr. Edge. Abnormal PFT 12/19/2014 Anemia 12/29/2013 Anxiety and depression 12/29/2013 Overview (08/14/2024): [facility] Degenerative lumbar disc 12/29/2013 Encounters Date Type Department Care Team Description 01/27/2025 3:00 PM EDT [facility] [address] [place] [phone] Karina Fraire NP Pulmonary emphysema, unspecified emphysema type (CMS/HCC V24, CMS/HCC V28) (Primary Dx); Heart failure with reduced ejection fraction, NYHA class II (CMS/HCC V24, CMS/HCC V28) 12/15/2024 1:40 PM EST Office Visit [facility] [address] [place] [phone] Selma Beasley NP Coronary artery disease involving otoe-missouria coronary artery of otoe-missouria heart without angina pectoris (Primary Dx); Sarcoidosis of lung (CMS/HCC V24); Heart failure with reduced ejection fraction, NYHA class II (CMS/HCC V24, CMS/HCC V28); Primary hypertension; LV (left ventricular) mural thrombus; Pure hypercholesterolemia 12/15/2024 10:00 AM EST Ancillary Procedure [facility] [address] [place] [phone] Encounter for adjustment or management of cardiac device 12/14/2024 3:00 PM EST [facility] [address] [place] [phone] Ming Lincoln Pulmonary emphysema, unspecified emphysema type (CMS/HCC V24, CMS/HCC V28) from Last 3 Months Immunizations Name Administration Dates Next Due Influenza trivalent, 0.5mL, preservative free (Fluarix; FluLaval; Fluzone) ages 6mo and older (Afluria) 3 years and older 10/24/2015 Influenza trivalent, with pr eservative (Fluzone; Afluria) 6mo and older 08/25/2014 Tdap Tetanus diptheria acell ular pertussis (Boostrix; Adacel) 7yo and older 03/10/2014 Surgical History Surgery Date Site/Laterality Comments CARDIAC CATH PROCEDURE 03/29/2020 Right at [facility] TUBAL LIGATION 11/03/1993 - 11/02/1994 Medical History Medical History Date Comments NSVT (nonsustained ventricul ar tachycardia) ([facility] V24, [facility] V28) 07/02/2024 LV (left ventricular) mural thrombus 01/29/2024 Hypertension 04/17/2022 ICD (implantable cardioverter-defibrillator), si anivalmario, in situ 06/16/2019 Abnormal TSH 08/27/2017 Sarcoidosis of lung ([facility] V24) 08/19/2017 Cardiac sarcoidosis 10/10/2015 CHF (congestive heart failure) ([facility] V24, [facility] V28) 10/10/2015 Coronary artery disease 10/10/2015 Hyperlipidemia 10/10/2015 Abnormal PFT 12/19/2014 Anemia 12/29/2013 Family History Medical History Relation Name Comments Colon cancer Father Cancer Maternal Grandmother Relation Name Status Comments Father Maternal Grandmother Social History Tobacco Use Types Packs/Day Years Used Date Smoking Tobacco: Every Day Cigarettes Passive Smoke Exposure: Never Smokeless Tobacco: Never Tobacco Cessation:Ready to Q uit: Not Asked; Counseling Given: Not Answered Alcohol Use Standard Drinks/Week Comments Never 0 (1 standard drink = 0.6 oz pur e alcohol) Comments Unknown Sex and Gender Information Value Date Recorded Sex Assigned at Not on file Legal Sex Female 11:17 AM EST Gender Identity Not on file Sexual Orientation Not on file Obstetrics History Last Filed Vital Signs Vital Sign Reading Time Taken Comments Blood Pressure 104/60 01/27/2025 2:39 PM EDT Pulse 55 01/27/2025 2:39 PM EDT Temperature 36.9 ??C (98.5 ??F) 01/27/2025 2:39 PM ED T Respiratory Rate 16 01/27/2025 2:39 PM EDT Oxygen Saturation 100% 01/27/2025 2:39 PM EDT Inhaled Oxygen Concentration - - Weight 62.2 kg (137 lb 3.2 oz) 01/27/2025 2:39 P M EDT Height 170.2 cm (5' 7 ) 01/27/2025 2:39 PM EDT Body Mass Index 21.49 01/27/2025 2:39 PM EDT Plan of Treatment Upcoming Encounters Date Type Department Care Team (Late st Contact Info) Description 03/14/2025 1:00 PM EDT Ancillary Procedure [facility] [address] [place] [address] 03/17/2025 3:30 PM EDT Office Visit Adult Medicine [facility] [address] [place] [address] Cyndee Jaquez MD [address] [place] [address] 08/01/2025 2:00 PM EDT Office Visit Pulmonolgy - [place] [address] [place] [phone] Karina Fraire NP [address] [facility] [address] [place] [address] Health Maintenance Due Date Last Done Comments Hepatitis B Vaccines (1 of 3 - 19+ 3-dose series) 1989 Pneumococcal Vaccine: 50+ Years (1 of 2 - PCV) 1989 Pneumococcal Vaccine: Pediatrics (0 to 5 Years) and At-Risk Patients (6 to 64 Years) (1 of 2 - PCV) 1989 Zoster Vaccines (1 of 2) 2020 HIV Screening 10/12/2022 Hepatitis C Screening 10/12/2022 Social Influencers of Health Screening 10/12/2022 DTaP,Tdap,and Td Vaccines (2 - Td or Tdap) 03/10/2024 03/10/2014 COVID-19 Vaccine ( - season) 2024 Depression Screening 04/19/2025 04/19/2024 Influenza Vaccine (Season Ended) 2025 10/24/2015, 08/25/2014 Breast Cancer Screening 08/02/2025 08/02/20, 08/19/2022, 08/01/2022, Additional history exists Hypertension/CHF/CAD Annual BMP Blood Test 12/01/2025 12/01/2024, 06/10/2024, 06/10/2024, Additional history exists Cholesterol Screening (Lipid Panel) 05/03/2027 05/03/2022 Cervical Cancer Screening: HPV 05/16/2027 05/16/2022 Colorectal Cancer Screening: Colonoscopy 09/12/2027 09/12/2022 HIB Vaccines Aged Out No longer eligi ble based on patient's age to complete this topic HPV Vaccines Aged Out No longer eligi ble based on patient's age to complete this topic Hepatitis A Vaccines Aged Out No long er eligible based on patient's age to complete this topic IPV Vaccines Aged Out No longer eligi ble based on patient's age to complete this topic MMR Vaccines Aged Out No longer eligi ble based on patient's age to complete this topic Meningococcal ACWY Vaccine Aged Out N o longer eligible based on patient's age to complete this topic Meningococcal B Vaccine Aged Out No l onger eligible based on patient's age to complete this topic RSV Immunization Patients Under 20 months Aged Out No longer eligible based on patient's age to complete this topic Varicella Vaccines Aged Out No longer eligible based on patient's age to complete this topic Procedures Procedure Name Priority Date/Time Associated Diagnosis Comments ECG 12-LEAD Routine 12/15/2024 3:52 PM EST Coronary artery disease involving otoe-missouria coronary artery of otoe-missouria heart without angina pectoris CARDIAC DEVICE CHECK- IN CLINIC- [facility] Routine 12/15/2024 2:43 PM EST Encounter for adjustment or management of cardiac device PULMONARY FUNCTION TESTING Routine 12/14/2024 4:03 PM EST Pulmonary emphysema, unspecified emphysema type (CMS/HCC V24, CMS/HCC V28) BASIC METABOLIC PANEL Routine 12/01/2024 9:14 AM EST Heart failure, unspecified (CMS/HCC V24, CMS/HCC V28) B-TYPE NATRIURETIC PEPTIDE Routine 12/01/2024 9:14 AM EST Heart failure, unspecified (CMS/HCC V24, CMS/HCC V28) CBC WITH AUTO DIFFERENTIAL Routine 11/26/2024 10:32 AM EST Heart failure with reduced ejection fraction, NYHA class II (CMS/HCC V24, CMS/HCC V28) Pulmonary emphysema, unspecified emphysema type (CMS/HCC V24, CMS/HCC V28) CBC AND DIFFERENTIAL Routine 11/26/2024 10:32 AM EST Heart failure with reduced ejection fraction, NYHA class II (CMS/HCC V24, CMS/HCC V28) Pulmonary emphysema, unspecified emphysema type (CMS/HCC V24, CMS/HCC V28) [id number] Routine 11/26/2024 1 0:32 AM EST Pulmonary emphysema, unspecified emphysema type (CMS/HCC V24, CMS/HCC V28) ANGIOTENSIN CONVERTING ENZYME Routine 11/26/2024 10:32 AM EST Sarcoidosis of lung (CMS/HCC V24) DEPRESSION SCREENING Routine 04/19/2024 SCREENING MAMMOGRAPHY BI 2-VIEW BREAST INC CAD Routine 08/02/2023 3:09 PM EDT Encounter for screening mammogram for malignant neoplasm of breast COLONOSCOPY Routine 09/12/2022 HPV Routine 05/16/2022 LIPID PANEL Routine 05/03/2022 from Last 3 Months or Most Recently Relevant to Health Maintenance Results * ECG 12 lead (12/15/2024 3:52 PM EST) Ventricular Rate ECG 73 BPM GEMUSE Atrial Rate 73 BPM GEMUSE P-R Interval 206 ms GEMUSE QRS Duration 108 ms GEMUSE Q-T Interval 380 ms GEMUSE QTc 418 ms GEMUSE P Wave [place] 65 degrees GEMUSE R [place] -108 degrees GEMUSE T [place] 72 degrees GEMUSE ECG Interpretation Normal sinus rhythm Right ventricular hypertrophy Lateral infarct , age undetermined Abnormal ECG c/w EKGs from [facility] [place] [place] Confirmed by SKIP HERNANDEZ ([id number]) on 12/29/2024 9:18:16 AM GEMUSE 12/15/2024 1:46 PM EST 12/29/2024 9:18 AM EST us Selma Beasley NP ECG ORDERABLES Edited Result - Final GEMUSE * CARDIAC DEVICE CHECK- IN CL[facility]IC- [facility] (12/15/2024 2:43 PM EST) Date Time Interrogation Session [id number] CV DEVICE CHECK Implantable Pulse Generator Hand Endband Cutter MDT CV DEVICE CHECK Implantable Pulse Generator Type ICD CV DEVICE CHECK Implantable Pulse Generator Model Evera S VR [id number] CV DEVICE CHECK Implantable Pulse Generator Serial Number [id number] CV DEVICE CHECK Battery Status Middle of Service CV DEVICE CHECK Clive Statistic RV Percent Paced 1.20 CV DEVICE CHECK Lead Channel Sensing Intrinsic Amplitude 3.900 CV DEVICE CHECK Lead Channel Setting Sensing Sensitivity 0.30 CV DEVICE CHECK Lead Channel Impedance Value 361 CV DEVICE CHECK Lead Channel Pacing Threshold Amplitude 1.000 CV DEVICE CHECK Lead Channel Pacing Threshold Pulse Width 0.4 CV DEVICE CHECK Lead Channel RV Pacing Threshold Date 2024-12-15 CV DEVICE CHECK Lead Channel Setting Pacing Amplitude 2.250 CV DEVICE CHECK Lead Channel Setting Pacing Pulse Width 0.4 CV DEVICE CHECK Clive Setting Mode (NBG Code) VVI CV DEVICE CHECK Clive Setting Lower Rate Limit 40 CV DEVICE CHECK RV HV Impedance 64 CV D EVICE CHECK Zone Setting Type Category VF CV DEVICE CHECK Therapies ATP During Charging, 30J, 35J x 5 CV DEVICE CHECK Zone Setting Status On CV DEVICE CHECK Zone ID 3 CV DEVICE CHECK Zone Setting Type Category FVT CV DEVICE CHECK Therapies All Rx Off CV DEVICE CHECK Zone Setting Status Off CV DEVICE CHECK Zone ID 4 CV DEVICE CHECK Zone Setting Type Category VT CV DEVICE CHECK Therapies All Rx Off CV DEVICE CHECK Zone Setting Status Off CV DEVICE CHECK Zone ID 5 CV DEVICE CHECK Date of Service 2024-12-15 CV DEVICE CHECK Anatomical Region Laterality Modality Device Interroga tion 12/15/2024 Impressions 12/22/2024 1:43 PM EST Normal In-Office: No Events * Normal Device Function * Alerts or events: No sustained events noted * Battery: MOS, 2.8 years * Sensing, impedance and thresholds reviewed and tested * Presenting Rhythm: - VS 70's with occasional PVC's * Heart Rate Histograms reviewed * Pacing and Detection Parameters were evaluated Narrative Procedure Note Jorge Zheng MD - 12/22/2024 IMPRESSION: Normal In-Office: No Events * Normal Device Function * Alerts or events: No sustained events noted * Battery: MOS, 2.8 years * Sensing, impedance and thresholds reviewed and tested * Presenting Rhythm: - VS 70's with occasional PVC's * Heart Rate Histograms reviewed * Pacing and Detection Parameters were evaluated us Order Referral Cardiovascular CV IMPLANTABLE CAR DIAC DEVICE PROCEDURES Final Result * Pulmonary function testing: Carbon Monoxide Diffusing Capacity, Nitrogen Wash Out, Spirometry with Bronchodilator, Nitric Oxide Gas Determination, Maximum Voluntary Ventilation, Flow Volume Loop, Vital Capacity Test, Spirometry (12/14/2024 4:03 PM EST) Impressions Adriana Mckeon MD - 12/14/2024 4:03 PM EST DATE OF SERVICE: 12/14/24 SPIROMETRY: FEV1 is 88 % predicted and an FVC ??is 87 % predicted. The FEV1/FVC ratio is 99% of normal LUNG VOLUMES: Total lung capacity (TLC): 98% predicted. Residual volume (RV): 133% predicted RV/TLC ratio is 129% of normal DIFFUSION CAPACITY: DLCO 41% predicted. DlCO/VA 50% of predicted COMPARISONS: INTERPRETATION: This pulmonary function test shows severe diffusion impairment with normal spirometry. ??This is consistent with parenchymal lung disease such as ILD or emphysema. ??Will compared to the last test in 2015, there has been some decline in the diffusion capacity ??Adriana Mckeon MD ?? us Karina Fraire DIESEL ENGINE MECHANIC PFT ORDERABLES Final R esult * (ABNORMAL) B-type natriuretic peptide (12/01/2024 9:14 AM EST) BNP 1,309(H) <=100 pcg/mL LAB CHEMISTRY METHOD 12/01/2024 10:[address] [facility] Blood Venous blood specimen / Unknown Venipuncture / Unknown 12/01/2024 9:14 AM EST 12/01/2024 9:14 AM EST Jennifer Villavicencio MD LAB BLOOD ORDERABLES Final Re sult [facility] [address] [place] [address], * (ABNORMAL) Basic metabolic panel (12/01/2024 9:14 AM EST) Pathologist [facility] Sodium 140 133 - 145 mmol/L LAB CHEMISTRY METHOD 12/01/2024 1:[address] [facility] Potassium 4.3 3.5 - 5.5 mmol/L LAB CHEMISTRY METHOD 12/01/2024 1:[address] [facility] Chloride 107 96 - 110 mmol/L LAB CHEMISTRY METHOD 12/01/2024 1:[address] [facility] CO2 29 21 - 32 mmol/L LAB CHEMISTRY METHOD 12/01/2024 1:[address] [facility] Anion Gap 4 3 - 11 LAB CHEMISTRY METHOD 12/01/2024 1:[address] [facility] Glucose 109(H) 70 - 100 mg/dL LAB CHEMISTRY METHOD 12/01/2024 1:[address] [facility] BUN 16 5 - 25 mg/dL LAB CHEMISTRY METHOD 12/01/2024 1:[address] [facility] Creatinine 1.09 0.50 - 1.10 mg/dL LAB CHEMISTRY METHOD 12/01/2024 1:[address] [facility] eGFR 60 >=60 mL/min/1. 73m2 LAB CHEMISTRY METHOD 12/01/2024 1:[address] [facility] Comment:Calculation based on the??Chronic Kidney Disease Epidemiology Collaboration (CKD-EPI) equation refit??without adjustment for race. BUN/Creatinine Ratio 14.7 LAB CHEMISTRY METHOD 12/01/2024 1:[address] [facility] Calcium 9.9 8.5 - 10.5 mg/dL LAB CHEMISTRY METHOD 12/01/2024 1:[address] [facility] Blood Venous blood specimen / Unknown Venipuncture / Unknown 12/01/2024 9:14 AM EST 12/01/2024 9:14 AM EST Jennifer Villavicencio MD LAB BLOOD ORDERABLES Final Re sult [facility] [address] [place] [address], * (ABNORMAL) CBC auto differential (11/26/2024 10:32 AM EST) WBC 6.5 4.8 - 10.8 K/mcL LAB HEMETOLOGY METHOD 11/26/2024 12:[address] [facility] RBC 5.30(H) 3.80 - 4.80 M/mcL LAB HEMETOLOGY METHOD 11/26/2024 12:[address] [facility] Hemoglobin 15.8 11.5 - 16.0 g/dL LAB HEMETOLOGY METHOD 11/26/2024 12:[address] [facility] Hematocrit 50.1(H) 35.0 - 47.0 % LAB HEMETOLOGY METHOD 11/26/2024 12:[address] [facility] MCV 95.1 79.0 - 98.0 FL LAB HEMETOLOGY METHOD 11/26/2024 12:[address] [facility] MCH 30.0 27.0 - 32.0 pcg LAB HEMETOLOGY METHOD 11/26/2024 12:[address] [facility] MCHC 31.5(L) 32.0 - 37.0 g/dL LAB HEMETOLOGY METHOD 11/26/2024 12:[address] [facility] RDW 15.2(H) 11.0 - 15.0 % LAB HEMETOLOGY METHOD 11/26/2024 12:[address] [facility] Platelets 90(L) 130 - 400 K/mcL LAB HEMETOLOGY METHOD 11/26/2024 12:[address] [facility] Comment:Large platelets seen . Reviewed by slide MPV 14.3(H) 7.0 - 11.0 FL LAB HEMETOLOGY METHOD 11/26/2024 12:[address] [facility] NRBC 0.0 <1.0 % LAB HEMETOLOGY METHOD 11/26/2024 12:[address] [facility] NRBC Absolute 0.00 <0.10 K/mcL LAB HEMETOLOGY METHOD 11/26/2024 12:[address] [facility] Neutrophils Relative 41.7 % LAB HEMETOLOGY METHOD 11/26/2024 12:[address] [facility] Lymphocytes Relative 43.5 % LAB HEMETOLOGY METHOD 11/26/2024 12:[address] [facility] Monocytes Relative 10.9 % LAB HEMETOLOGY METHOD 11/26/2024 12:[address] [facility] Eosinophils Relative 2.9 % LAB HEMETOLOGY METHOD 11/26/2024 12:[address] [facility] Basophils Relative 0.8 % LAB HEMETOLOGY METHOD 11/26/2024 12:[address] [facility] Immature Granulocytes Relative 0.2 % LAB HEMETOLOGY METHOD 11/26/2024 12:[address] [facility] Neutrophils Absolute 2.72 1.50 - 7.00 K/mcL LAB HEMETOLOGY METHOD 11/26/2024 12:49 PM EST [facility] Lymphocytes Absolute 2.83 1.00 - 5.00 K/mcL LAB HEMETOLOGY METHOD 11/26/2024 12:[address] [facility] Monocytes Absolute 0.71 0.20 - 1.00 K/mcL LAB HEMETOLOGY METHOD 11/26/2024 12:49 PM EST [facility] Eosinophils Absolute 0.19 0.00 - 0.50 K/[facility] LAB HEMETOLOGY METHOD 11/26/2024 12:[address] [facility] Basophils Absolute 0.05 0.00 - 0.20 K/[facility] LAB HEMETOLOGY METHOD 11/26/2024 12:[address] [facility] Immature Granulocytes Absolute 0.01 0.00 - 0.03 K/[facility] LAB HEMETOLOGY METHOD 11/26/2024 12:49 PM EST [facility] Blood Venous blood specimen / Unknown Venipuncture / Unknown 11/26/2024 10:32 AM EST 11/26/2024 10:32 AM EST Karina Fraire [employer] LAB BLOOD ORDERABLES Fi nal Result [facility] [address] [place] [address], * [id number] (11/26/2024 10:32 AM EST) A-1 Antitrypsin 179 90 - 200 mg/dL LAB CHEMISTRY METHOD 11/26/2024 5:32 PM EST [facility] Blood Venous blood specimen / Unknown Venipuncture / Unknown 11/26/2024 10:32 AM EST 11/26/2024 10:32 AM EST Karina Fraire [employer] LAB BLOOD ORDERABLES Fi nal Result [facility] [address] [place] [address], * (ABNORMAL) Angiotensin converting enzyme (11/26/2024 10:32 AM EST) Angiotensin Converting Enzyme (GILBERT) 66(H) 8 - 52 U/L 11/29/2024 11:17 AM EST [facility] Comment: Test performed at [facility], [address], [place], [place] ??[address] ? [phone] Mirian Gotti MD, PhD - Take Up Supervisor Blood Venous blood specimen / Unknown Venipuncture / Unknown 11/26/2024 10:32 AM EST 11/26/2024 10:32 AM EST Karina Juno [employer] LAB BLOOD ORDERABLES Fi nal Result [facility] [address] [place] [address] * Hm Depression Screening (04/19/2024) Pathologist [facility] Depression Screening abstracted Historical Provider HEALTH MAINTENANCE Final Result * SCREENING MAMMOGRAPHY BI 2-VIEW BREAST INC CAD (08/02/2023 3:09 PM EDT) Anatomical Region Laterality Modality Radiographic Rafaela ging 08/01/2022 5:48 PM EDT Narrative 08/04/2023 7:09 PM EDT This is a summary report. The complete report is available in the patient's medical record. If you cannot access the medical record, please contact the sending organization for a detailed fax or copy. Exam: Screening mammogram Findings: Digital bilateral full-field screening mammography is performed with tomosynthesis and interpreted with the aid of computer-aided detection. ??Comparison is made with 08/19/2022, 08/01/2022, and 07/06/2019. ??Battery pack superimposes the left axillary region limiting regional assessment. Breast parenchyma is heterogeneously dense, limiting mammographic sensitivity. ??No new suspicious mass, architectural distortion, or suspicious calcifications. Impression: No mammographic evidence of malignancy. BI-RADS 1 - negative Procedure Note Estefany Bourne MD - 12/08/2023 This is a summary report. The complete report is available in thepatient's medical record. If you cannot access the medical record, pleasecontact the sending organization for a detailed fax or copy. Exam: Screening mammogram Findings: Digital bilateral full-field screening mammography is performedwith tomosynthesis and interpreted with the aid of computer-aideddetection. Comparison is made with 08/19/2022, 08/01/2022, and 07/06/2019.Battery pack superimposes the left axillary region limiting regionalassessment. Breast parenchyma is heterogeneously dense, limiting mammographicsensitivity. No new suspicious mass, architectural distortion, orsuspicious calcifications. Impression: No mammographic evidence of malignancy. BI-RADS 1 - negative Zina Carpenter MD IMG XR PROCEDURES Final Res ult * Colonoscopy (09/12/2022) Pathologist [facility] Colonoscopy no interpretation , abstracted Anatomical Region Laterality Modality Other [facility] Provider HEALTH MAINTENANCE Final Result * Cervical Cancer Screening: HPV (05/16/2022) Pathologist [facility] Cervical Cancer Screening: HPV negative, abstracted [facility] Provider HEALTH MAINTENANCE Final Result * Lipid panel (05/03/2022) Pathologist [facility] LDL/HDL Ratio 3 0 - 4 Triglycerides 66 0 - 150 mg/dL Cholesterol 153 0 - 200 mg/dL HDL 48 >=40 mg/dL LDL Cholesterol 92 0 - 100 mg/dL Blood Venous blood specimen / Unknown Result [facility] Historical Provider LAB BLOOD ORDERABLES Alison l Result from Last 3 Months or Most Recently Relevant to Health Maintenance Insurance [facility] [employer] Care Teams Workers' Compensation Hearings Officer Relationship Specialty Start Date End Date Cyndee Jaquez MD [address] [place] [address] [id number] PCP - General Internal Medicine 06/17/22
[2025-02-16] MEDS: iohexoL 350 MG/ML 100 ML INFUS..BTL 85 ML IV (19:28)
--- NOTE | 2025-02-16 21:27 | PC.NURSE ---
Pt a&ox4, no signs of distress Pt requested to have IV removed, this RN advised IV should be kept in until pt is D/C in case we need to give meds. Plan of care ongoing.
[2025-02-16 21:51] VITALS: BP 106/62; PULSE 88; RESP 16; TEMP 36.3; O2SAT 97
[2025-02-16] MEDS: Clindamycin HCL 150 MG CAPSULE 450 MG PO (22:00)
[2025-02-16 22:02] VITALS: BP 106/62; PULSE 88; RESP 16; TEMP 36.3; O2SAT 97
== END 2025-02-16 22:02 | disposition home or self-care (01) ==
PROVIDERS: Physician Assistant Medical; Emergency Provider Emergency Medicine; PCP Internal Medicine
DX: K04.7 Periapical abscess without sinus (principal); I48.91 Unspecified atrial fibrillation; F17.210 Nicotine dependence, cigarettes, uncomplicated; Z79.01 Long term (current) use of anticoagulants
CPT/HCPCS: 36415; 70487; 80053; 83605; 85025; 87040; 99284; Q9967

== ENCOUNTER → 2025-02-16 18:21 | Outpatient (BNV) | payer OTHER, SELFPAY | PROVIDERS: Emergency Provider Emergency Medicine; PCP Internal Medicine; Visit Provider Radiology Diagnostic Radiology | DX: K12.2 Cellulitis and abscess of mouth (principal); M27.2 Inflammatory conditions of jaws | CPT/HCPCS: 70487 ==

== ENCOUNTER 2025-03-06 18:05 | Emergency (ER) | payer OTHER, SELFPAY ==
[2025-03-06] VITALS (29 sets, daily range): BP systolic 58–199; BP diastolic 32–145; PULSE 45–140; RESP 24–54; TEMP 22.4; O2SAT 85–99; BMI 21.7
--- NOTE | ~2025-03-06 | XR_ITS ---
CLINICAL HISTORY: sob 1 view chest x-ray Comparison: Chest x-ray from 01/14/2024 Findings: The endotracheal tube terminates in the mid to upper thoracic trachea. Cervical spine hardware is partially imaged. Cardiac device with leads redemonstrated. New pedal opacity with multiple superficial leads present. New moderate to severe pulmonary opacities are nonspecific may reflect edema pneumonitis or pneumonia. Small pleural effusions. No pneumothorax in this portable image. No osseous change in the [id number]. IMPRESSION: 1. The endotracheal tube terminates in the mid to upper thoracic trachea. 2. Severe bilateral airspace disease. This document has been electronically signed by: Emilio Dai MD on 03/06/2025 20:38:45
--- NOTE | 2025-03-06 18:26 | PC.NURSE ---
Patient tripoding in bed with respiratory at bedside; pt on high flow NC and pt still RR 54 with work of breathing unchanged. Patient remains alert and responsive at this time but reports not feeling any better and very thirsty. Pt denies CP just needs oxygen she states. 20g LAC and secondary IV placed RFA 20g
--- NOTE | 2025-03-06 18:31 | ECG_ITS ---
Test Reason : DYSPNEA Blood Pressure : */* mmHG Vent. Rate : 112 BPM Atrial Rate : 112 BPM P-R Int : 206 ms QRS Dur : 110 ms QT Int : 326 ms P-R-T Axes : * -29 114 degrees QTcB Int : 444 ms AGE AND GENDER SPECIFIC ECG ANALYSIS Sinus tachycardia with occasional Premature ventricular complexes Lateral infarct Inferior injury pattern Abnormal ECG When compared with ECG of 06-Mar-2025 18:29, Significant changes have occurred Referred By: Manish Guzman Electronically Signed By: COLBY MCKEON
--- NOTE | 2025-03-06 18:35 | ED.SOB ---
HPI - SOB/Dyspnea General Chief Complaint: Dyspnea Stated Complaint: SOB/LOW 80'S,DUONEB 94% PER EMS Time Seen by Provider: 03/06/25 18:29 Source: patient and EMS Mode of arrival: EMS Limitations: no limitations History of Present Illness ED Provider: DR. Guzman HPI Narrative: 54-year-old female with pertinent history of CHF with reduced ejection fraction s/p ICD, P AFib on Eliquis, mixed HLD, mood disorder, active cigarette smoking, patient was visiting her daughter when she suddenly start have shortness of breath and become dyspneic patient did not have her home medication for emphysema, EMS was called on arrival patient was tripoding coughing diaphoretic satting at 85% as per EMS report, patient was given DuoNeb and 125 mg of Solu Medrol placed on non-rebreather and transported to the hospital. On arrival patient is awake, alert, in acute respiratory distress, diaphoretic, unable to obtain O2 sat patient has cool extremity, patient was willing to try BiPAP machine patient after 5 minutes I felt that she needed to be intubated and she is tired of struggling with the work of breathing. Patient was intubated in the ED. Related Data Home Medications ?Medication ?Instructions ?Recorded ?Confirmed apixaban 5 mg tablet (Eliquis) 5 mg PO BID 01/14/24 01/14/24 clonidine HCl 0.1 mg tablet 0.1 mg PO BID PRN Anxiety 01/14/24 01/14/24 duloxetine 60 mg capsule,delayed 60 mg PO DAILY 01/14/24 01/14/24 release lamotrigine 100 mg tablet 100 mg PO DAILY 01/14/24 01/14/24 mirtazapine 30 mg tablet 30 mg PO BEDTIME 01/14/24 01/14/24 olanzapine 20 mg tablet 20 mg PO BEDTIME 01/14/24 01/14/24 sacubitril 49 mg-valsartan 51 mg 1 tab PO BID 01/14/24 01/14/24 tablet (Entresto) spironolactone 25 mg tablet 12.5 mg PO DAILY 01/14/24 01/14/24 Previous Rx's ?Medication ?Instructions ?Recorded furosemide 20 mg tablet (Lasix) 20 mg PO DAILY #90 tabs 01/16/24 cefuroxime axetil 250 mg tablet 250 mg PO BID 7 days #14 tabs 07/19/24 clindamycin HCl 150 mg capsule 450 mg (3 x 150 mg) PO TID #90 caps 02/16/25 Allergies Allergy/AdvReac Type Severity Reaction Status Date / Time ibuprofen [From Motrin] Allergy Unknown HIVES/STOMACH Verified 03/06/25 19:24 UPSET bupropion [From Wellbutrin] Allergy Rash Verified 03/06/25 19:24 Review of Systems Review of Systems: All other systems are reviewed and are negative Constitutional: Reports as per HPI and Reports no additional constitutional complaints Eyes: Reports as per HPI and Reports no additional eye complaints Reports system reviewed and no additional complaints, except as documented Cardiovascular: Reports as per HPI and Reports no additional cardiovascular complaints Respiratory: Reports as per HPI and Reports no additional respiratory complaints Gastrointestinal: Reports as per HPI and Reports no additional gastrointestinal complaints Genitourinary: Reports no additional female genitourinary complaints Musculoskeletal: Reports no additional musculoskeletal complaints Skin/Breast: Reports system reviewed and no additional complaints, except as docu Psychiatric: Reports no additional psychiatric complaints Endocrine: Reports no additional endocrine complaints Hematologic/Lymphatic: Reports no additional hematologic/lymphatic complaints Allergic/Immunologic: Reports no additional allergic/immunologic complaints Reports system reviewed and no additional complaints, except as documented and Reports Abnormal speech present [facility] Past Medical History Medical History Mood disorder Atrial fibrillation Congestive heart failure Sarcoidosis Cardiac defibrillator in place Social History Social History Household Members: Family Household Members Other:: son Housing: Apartment Do you presently have visiting nurse or other home services: No Unable to assess alcohol history related to: Unknown Alcohol intake: former Patient Tobacco Use Status: Current everyday Tobacco user Tobacco use type: Cigarette Cigarettes Per Day: 2 Second Hand Smoke Exposure: No Substance Use Type: Marijuana Advance Directives: No Advance Directives Information Provided: No service: No Physical Exam Vital Signs: Vital Signs: Last Vital Signs Pulse 49 L 03/06/25 21:15 Resp 28 H 03/06/25 20:25 BP 97/59 L 03/06/25 21:15 Pulse Ox 99 03/06/25 20:25 O2 Del Method Mechanical Ventil ation 03/06/25 20:25 FiO2 100 03/06/25 19:06 BMI result Body Mass Index 21.7 Vital signs have been reviewed and appear to be correct. Blood pressure low. Heart rate normal. Respiratory rate Elevated, Temperature normal. Oxygen saturation normal. Appearance: Alert. acute respiratory distress unable to speak in full sentence. Head: Normal external exam. Normocephalic. Atraumatic. No Mckenna signs noted. No raccoon eyes noted Eyes: PERRLA. EOMI. Conjunctiva and sclera normal. Eyelids normal. ENT: TM's Normal. Pharynx normal. Uvula midline. Moist mucous membranes. No trismus noted. No drooling noted. No muffled voice noted. Neck: Normal inspection. Neck supple. FROM. No adenopathy. Thyroid Normal. No meningeal signs. No neck mass noted. CVS: Normal heart rate and rhythm. Heart sound normal. No murmurs noted. Pulses normal throughout. Respiratory: No respiratory distress. Painless inspiration. Breath sounds normal. No wheezes/rales/rhonchi noted. Chest nontender. No accessory muscle usage noted or decreased air movement noted. Abdomen: Soft and nontender. Bowel sounds normal in all 4 quadrants. No distention noted. No organomegaly noted. No visible injury noted. Back: No CVA tenderness. Full range of motion noted. Skin: Skin warm and dry. Normal skin color. Normal skin turgor. No rashes/lesions/lacerations noted. Extremities: No lower extremity edema. Extremities exhibit normal range of motion. Extremities nontender. Neuro: Awake, oriented, unable to speak in full sentence. Cranial nerve exam: II-XII are grossly intact No motor deficit. No sensory deficit. Reflexes normal. Course Reevaluation(s) Reevaluation #1: 54-year-old female history of congestive heart failure presented with likely cardiogenic shock, persistent hypotension, needed intubation. Dr Witt and Dr. Wright were consulted patient will require to be transferred to CCU at [facility], case discussed with Dr. Jay who accepted the patient. Will transfer the patient with critical care transportation. Will add dopamine IV drip to Levophed, wean off sedative since not supporting blood pressure. Time: 21:01 Reevaluation #2: IV dopamine drip was started along with Levophed with improvement of blood pressure to 117/93 with MAP 98, patient is well sedated, critical care transport is at the bedside loading the patient to go to [facility]. Time: 21:36 Medications Administered Generic Name Dose Route Start Last Admin Trade Name Dashawn PRN Reason Stop Dose Admin Fentanyl 1,000 mcg in 100 mls @ 0 mls/hr 03/06/25 19:00 03/06/25 20:16 Sublimaze/Ns IVCONT 25 mcg/hr .Q0M OSIEL 2.5 mls/hr Administration Protocol Per Protocol Lactated Ringer's 1,000 mls @ 500 mls/hr 03/06/25 19:45 03/06/25 20:50 Lr IV 03/06/25 21:44 500 mls/hr .Q2H OSIEL Administration Propofol 1,000 mg in 100 mls @ 0 mls/hr 03/06/25 19:45 03/06/25 19:01 Diprivan IVCONT 0.05 mcg/kg/min .Q0M OSIEL 0.02 mls/hr Administration Protocol Per Protocol Norepinephrine Bitartrate 8 mg in 250 mls @ 0 mls/hr 03/06/25 19:45 03/06/25 19:01 Levophed IVCONT 0.2 mcg/kg/min .Q0M OSIEL 24.98 mls/hr Administration Protocol Per Protocol Dopamine HCl/Dextrose 400 mg in 250 mls @ 0 mls/hr 03/06/25 21:00 03/06/25 21:15 Dopamine Hcl/D5w IVCONT 5 mcg/kg/min .Q0M OSIEL 12.49 mls/hr Administration Protocol Per Protocol Discontinued Medications Generic Name Dose Route Start Last Admin Trade Name Dashawn PRN Reason Stop Dose Admin Ceftriaxone Sodium 1 gm 03/06/25 18:57 03/06/25 20:17 Ceftriaxone Sodium 1 Gm Vial IVPUSH 03/06/25 18:58 1 gm ONCE ONE Administration Sodium Chloride 1,000 mls @ 999 mls/hr 03/06/25 18:30 03/06/25 20:54 Ns IV 03/06/25 19:30 Not Given .Q1H1M ONE Magnesium Sulfate 2 gm in 50 mls @ 25 mls/hr 03/06/25 18:30 03/06/25 20:49 Magnesium Sulfate/H2o IV 03/06/25 20:29 25 mls/hr ONCE ONE Administration Potassium Chloride 10 meq in 100 mls @ 100 mls/hr 03/06/25 19:39 03/06/25 20:51 Potassium Chloride/H20 IV 03/06/25 20:38 100 mls/hr ONCE ONE Administration Doxycycline Hyclate 100 mg/ 250 mls @ 166.67 mls/hr 03/06/25 19:40 03/06/25 20:49 Sodium Chloride IV 03/06/25 21:09 166.67 mls/hr ONCE ONE Administration Methylprednisolone Sodium Succinate 125 mg 03/06/25 18:30 03/06/25 20:06 Methylprednisolone Sod Succ 125 Mg/2 Ml Vial IVPUSH 03/06/25 18:31 Not Given ONCE ONE Midazolam HCl 2 mg 03/06/25 20:39 03/06/25 20:38 Midazolam Hcl 2 Mg/2 Ml Vial IVPUSH 03/06/25 20:40 2 mg ONCE ONE Administration Rocuronium [place] 10 mg 03/06/25 18:57 03/06/25 18:55 Rocuronium [place] 50 Mg/5 Ml Vial IVPUSH 03/06/25 18:58 10 mg ONCE ONE Administration Rocuronium [place] 10 mg 03/06/25 20:39 03/06/25 20:40 Rocuronium [place] 50 Mg/5 Ml Vial IVPUSH 03/06/25 20:40 10 mg ONCE ONE Administration Medical Decision Making Differential Diagnosis Differential Diagnoses: The differential diagnosis associated with the presentation includes ( COPD exacerbation, CHF, cardiogenic shock, acute respiratory failure, pneumonia, pneumothorax, pleural effusion.) Admission/Observation Consideration of admission/observation: Escalation of care including admission/observation considered Consult Healthcare Provider Management of the patient was discussed with: [employer] ( Dr. Witt, Dr. Wright.) Lab Data MDM Lab Attestation statement: I reviewed the patient's lab results. 03/06/25 19:16 03/06/25 19:16 Labs: Lab Results 03/06/25 03/06/25 03/06/25 Range/Units 18:39 18:43 18:45 WBC (4.8-10.8) X10*3/uL RBC (4.20-5.50) X10*6/uL Hgb (12.0-16.0) g/dl Hct (37.0-47.0) % MCV (80.0-98.0) fL MCH (27.0-33.0) pg MCHC (31.0-35.0) g/dl RDW (11.0-16.0) % Plt Count (160-400) X10*3/uL MPV (9.4-12.3) fL Immature Gran % (Auto) (0.0-0.4) % Neut % (Auto) (45-73) % Lymph % (Auto) (20-40) % Sutter % (Auto) (2-11) % Eos % (Auto) (0-4) % Baso % (Auto) (0-2) % Lymph # (Auto) (1.2-4.9) X10*3/uL Sutter # (Auto) (0.1-1.2) X10*3/uL Eos # (Auto) (0.0-0.4) X10*3/uL Baso # (Auto) (0.0-0.2) X10*3/uL Abs Immat Gran (auto) (0.00-0.03) X10*3/uL Absolute Neuts (auto) (2.0-8.3) x10*3/uL Absolute Nucleated RBC (0.0-0.012) X10*3/uL Nucleated RBC % (auto) (0.0-0.2) /100WBC PT (10.9-12.4) SEC INR (0.9-1.1) VBG pH 7.11 L* (7.32-7.43) VBG pCO2 34 mmHg VBG pO2 65 mmHg VBG HCO3 11 L (22-26) mmol/L VBG O2 Saturation 83.0 % VBG Base Excess -16.9 mmol/L Sodium (135-145) mmol/L Potassium (3.3-5.1) mmol/L Chloride (96-108) mmol/L Carbon Dioxide (22-29) mmol/L Anion Gap (12-20) BUN (9-16) mg/dL Creatinine (0.5-1.4) mg/dL Estim Creat Clear Calc Estimated GFR POC Glucose 155 H (60-115) mg/dL Random Glucose (60-115) mg/dL Lactic Acid (0.5-2.0) mmol/L Calcium (8.4-10.2) mg/dL Total Bilirubin (0.0-1.0) mg/dL Direct Bilirubin (0.0-0.5) mg/dL AST (5-31) U/L ALT (0-31) U/L Alkaline Phosphatase (39-117) U/L Troponin I High Sens (<3.5-17.0) ng/L B-Natriuretic Peptide 3810 H (<100) pg/mL Total Protein (6.5-8.0) g/dL Albumin (3.5-5.0) g/dL Lipase (8-78) U/L Stool Occult Blood (NEGATIVE) Influenza Type A (PCR) (Negative) Influenza Type B (PCR) (Negative) RSV RNA Qual (PCR) (Negative) SARS-CoV-2 RNA (RT-PCR) (Negative) 03/06/25 03/06/25 Range/Units 19:16 20:14 WBC 6.1 (4.8-10.8) X10*3/uL RBC 3.00 L D (4.20-5.50) X10*6/uL Hgb 9.7 L D (12.0-16.0) g/dl Hct 30.5 L D (37.0-47.0) % MCV 101.7 H (80.0-98.0) fL MCH 32.3 (27.0-33.0) pg MCHC 31.8 (31.0-35.0) g/dl RDW 14.7 (11.0-16.0) % Plt Count 57 L D (160-400) X10*3/uL MPV 12.4 H (9.4-12.3) fL Immature Gran % (Auto) 2.6 H (0.0-0.4) % Neut % (Auto) 41.2 L (45-73) % Lymph % (Auto) 49.9 H (20-40) % Sutter % (Auto) 3.3 (2-11) % Eos % (Auto) 2.5 (0-4) % Baso % (Auto) 0.5 (0-2) % Lymph # (Auto) 3.1 (1.2-4.9) X10*3/uL Sutter # (Auto) 0.2 (0.1-1.2) X10*3/uL Eos # (Auto) 0.2 (0.0-0.4) X10*3/uL Baso # (Auto) 0.0 (0.0-0.2) X10*3/uL Abs Immat Gran (auto) 0.16 H (0.00-0.03) X10*3/uL Absolute Neuts (auto) 2.5 (2.0-8.3) x10*3/uL Absolute Nucleated RBC 0.000 (0.0-0.012) X10*3/uL Nucleated RBC % (auto) 0.0 (0.0-0.2) /100WBC PT 23.4 H (10.9-12.4) SEC INR 2.0 H (0.9-1.1) VBG pH (7.32-7.43) VBG pCO2 mmHg VBG pO2 mmHg VBG HCO3 (22-26) mmol/L VBG O2 Saturation % VBG Base Excess mmol/L Sodium 144 (135-145) mmol/L Potassium 2.9 L* D (3.3-5.1) mmol/L Chloride 124 H (96-108) mmol/L Carbon Dioxide 11 L (22-29) mmol/L Anion Gap 12 (12-20) BUN 7 L (9-16) mg/dL Creatinine 0.56 (0.5-1.4) mg/dL Estim Creat Clear Calc 120.0 Estimated GFR > 60 POC Glucose (60-115) mg/dL Random Glucose 212 H (60-115) mg/dL Lactic Acid 4.5 H* (0.5-2.0) mmol/L Calcium 4.9 L* D (8.4-10.2) mg/dL Total Bilirubin 0.2 (0.0-1.0) mg/dL Direct Bilirubin < 0.2 (0.0-0.5) mg/dL AST 55 H (5-31) U/L ALT 24 (0-31) U/L Alkaline Phosphatase 64 (39-117) U/L Troponin I High Sens 147.3 H* D (<3.5-17.0) ng/L B-Natriuretic Peptide (<100) pg/mL Total Protein 3.5 L (6.5-8.0) g/dL Albumin 1.8 L (3.5-5.0) g/dL Lipase 12 (8-78) U/L Stool Occult Blood NEGATIVE (NEGATIVE) Influenza Type A (PCR) NEGATIVE (Negative) Influenza Type B (PCR) NEGATIVE (Negative) RSV RNA Qual (PCR) NEGATIVE (Negative) SARS-CoV-2 RNA (RT-PCR) NEGATIVE (Negative) Independent Interpretation I performed an independent interpretation of an: Plain X-Ray ( chest:1. The endotracheal tube terminates in the mid to upper thoracic trachea. 2. Severe bilateral airspace disease.) Radiology Impression Discussion of test interpretation with radiology: I have reviewed the radiologist's reading. Procedures Intubation Intubation Type:: Emergency Endotracheal Intubation Intubation Date:: 03/06/25 Time out performed: Yes sedative: Ketamine Mg Given: 100 paralytic: Succinylcholine Mg Given: 100 Laryngoscope: Syed Assist Device Used: fiber optic device ET Tube Size: 7.5 ET Tube Uncuffed: No Tube Secured Depth (cm): 23 Tube Secured Location: lips Tube Placement Confirmation: visualized tube passing through cords, equal breath sounds bilaterally, no breath sounds over epigastrium and confirmation by capnometry Patient Tolerated Procedure: well Intubation Complications: none Critical Care Time Critical Care Time Critical Care Time: Yes Total Critical Care Time: 60 Attestation: The patient was critically ill with a high probability of imminent or life-threatening deterioration. I spent greater than 30 minutes of discontinuous time evaluating the patient, delivering critical care at the bedside, discussing evaluating data with consultants. Critical care time does not include time spent performing separately billable procedures or teaching. Time spent performing critical care was 60 minutes. Discharge Plan Discharge Clinical Impression: Cardiogenic shock Patient Disposition: [facility] Transfer Details: TO: [facility], CARDIAC ICU, ROOM 17 W/[facility] CCT Prescriptions: No Action clonidine HCl 0.1 mg tablet 0.1 mg PO BID PRN (Reason: Anxiety) spironolactone 25 mg tablet 12.5 mg PO DAILY mirtazapine 30 mg tablet 30 mg PO BEDTIME olanzapine 20 mg tablet 20 mg PO BEDTIME lamotrigine 100 mg tablet 100 mg PO DAILY duloxetine 60 mg capsule,delayed release(DR/EC) 60 mg PO DAILY Eliquis 5 mg tablet 5 mg PO BID Entresto 49-51 mg tablet 1 tab PO BID furosemide [Lasix] 20 mg tablet 20 mg PO DAILY Qty: 90 0RF clindamycin HCl 150 mg capsule 450 mg PO TID Qty: 90 0RF cefuroxime axetil 250 mg tablet 250 mg PO BID 7 Days Qty: 14 0RF Referrals: Cyndee Jaquez MD [Physician] - Print Language: Romanian
--- NOTE | 2025-03-06 18:40 | PC.NURSE ---
patient cold extremities and obtaining Oxygen saturation remains difficulty. Patient also diaphoretic and head saturation probe is unable to maintain.
[2025-03-06 18:52] LABS: VBG Base Excess -16.9 mmol/L; VBG HCO3 11 mmol/L (22-26); VBG pCO2 34 mmHg; VBG pH 7.11 (7.32-7.43); VBG pO2 65 mmHg
[2025-03-06 18:54] LABS: Venous Blood Gas Refer to POC result
[2025-03-06] MEDS: Rocuronium Bromide 50 MG/5 ML VIAL 10 MG IVPUSH ×3 (18:55→21:30)
--- NOTE | 2025-03-06 18:58 | ECG_ITS ---
Test Reason : DYSPNEA Blood Pressure : */* mmHG Vent. Rate : 81 BPM Atrial Rate : 81 BPM P-R Int : 192 ms QRS Dur : 120 ms QT Int : 392 ms P-R-T Axes : * -33 110 degrees QTcB Int : 455 ms Normal sinus rhythm Left axis deviation Lateral infarct (cited on or before 14-Jan-2024) Abnormal ECG When compared with ECG of 06-Mar-2025 18:45, Premature ventricular complexes are no longer Present Questionable change in initial forces of Lateral leads Referred By: Manish Guzman Electronically Signed By: COLBY MCKEON
[2025-03-06] MEDS: propofoL 1,000 MG/100 ML VIAL 19.98 MG IVCONT (19:01)
[2025-03-06] MEDS: Norepinephrine Bitartrate/D5W 8 MG/250 ML PLAST..BAG 12.49 MG IVCONT (19:01)
[2025-03-06 19:07] LABS: B Type Natriuretic Peptide 3810 pg/mL (<100)
--- NOTE | 2025-03-06 19:07 | ECG_ITS ---
Test Reason : dyspnea Blood Pressure : */* mmHG Vent. Rate : 69 BPM Atrial Rate : 69 BPM P-R Int : 186 ms QRS Dur : 108 ms QT Int : 432 ms P-R-T Axes : * -42 97 degrees QTcB Int : 462 ms Normal sinus rhythm Left axis deviation Incomplete right bundle branch block Lateral infarct (cited on or before 14-Jan-2024) Abnormal ECG When compared with ECG of 06-Mar-2025 18:58, No significant change was found Referred By: Manish Guzman Electronically Signed By: COLBY MCKEON
[2025-03-06 19:22] LABS: MANUAL DIFF FLAG NO
[2025-03-06 19:24] LABS: Basophils Percent Auto 0.5 % (0-2); Eosinophils Absolute Auto 0.2 X10*3/uL (0.0-0.4); Eosinophils Percent Auto 2.5 % (0-4); Hematocrit 30.5 % (37.0-47.0); Hemoglobin 9.7 g/dl (12.0-16.0); Imm Gran Abs Auto 0.16 X10*3/uL (0.00-0.03); Imm Gran Pct Auto 2.6 % (0.0-0.4); Lymphocytes Absolute Auto 3.1 X10*3/uL (1.2-4.9); Lymphocytes Percent Auto 49.9 % (20-40); Mean Corpuscular HGB Conc 31.8 g/dl (31.0-35.0); Mean Corpuscular Hemoglobin 32.3 pg (27.0-33.0); Mean Corpuscular Volume 101.7 fL (80.0-98.0); Mean Platelet Volume 12.4 fL (9.4-12.3); Monocytes Absolute Auto 0.2 X10*3/uL (0.1-1.2); Monocytes Percent Auto 3.3 % (2-11); Neutrophils Absolute Auto 2.5 x10*3/uL (2.0-8.3); Neutrophils Percent Auto 41.2 % (45-73); Red Cell Distribution Width 14.7 % (11.0-16.0); White Blood Count 6.1 X10*3/uL (4.8-10.8)
[2025-03-06 19:25] LABS: Glucose, Whole Blood 155 mg/dL (60-115)
[2025-03-06 19:26] LABS: Platelet Count 57 X10*3/uL (160-400)
[2025-03-06 19:28] LABS: Prothrombin Time 23.4 SEC (10.9-12.4)
[2025-03-06 19:40] LABS: Alanine Aminotransferase 24 U/L (0-31); Albumin Level 1.8 g/dL (3.5-5.0); Alkaline Phosphatase 64 U/L (39-117); Anion Gap 12 (12-20); Aspartate Amino Transferase 55 U/L (5-31); Bilirubin Direct < 0.2 mg/dL (0.0-0.5); Bilirubin Total 0.2 mg/dL (0.0-1.0); Blood Urea Nitrogen 7 mg/dL (9-16); Calcium 4.9 mg/dL (8.4-10.2); Carbon Dioxide 11 mmol/L (22-29); Chloride 124 mmol/L (96-108); Estimated Glomerular Filt Rate > 60; Glucose Random 212 mg/dL (60-115); Lipase 12 U/L (8-78); Potassium 2.9 mmol/L (3.3-5.1); Sodium 144 mmol/L (135-145); Total Protein 3.5 g/dL (6.5-8.0)
[2025-03-06 19:41] LABS: Lactic Acid 4.5 mmol/L (0.5-2.0)
[2025-03-06 19:50] LABS: Troponin-I High Sensitivity 147.3 ng/L (<3.5-17.0)
--- OUTSIDE RECORDS SUMMARY | 2025-03-06 19:52 | XMS_ITS | Encounter Summary ---
Demographics Address [address] [facility] [address] [place] [address] Home Phone Mobile Phone Preferred Language en Marital Status Single Roman Catholic Affiliation Unknown Race Black or Sherron rican Ethnic Group Not or Lati no Author Organization [facility] Address [address] [place] [address] Care Team Providers Care Grain Receiver Name Role Phone Cyndee Jaquez MD Primary Care Provider [phone] Encounter Details Date Type Department Care Team (Late Contact Info) Description 03/03/2025 Telephone [facility] [address] [facility] [address] [place] [id number] Slema Beasley NP [address] [facility] [address] [place] [address] Social History Tobacco Use Types Packs/Day Years Used Date Smoking Tobacco: Every Day Cigarettes Passive Smoke Exposure: Never Smokeless Tobacco: Never Alcohol Use Standard Drinks/Week Comments Never 0 (1 standard drink = 0.6 oz pur e alcohol) Comments Unknown Sex and Gender Information Value Date Recorded Sex Assigned at Not on file Legal Sex Female 11:17 AM EST Gender Identity Not on file Sexual Orientation Not on file documented as of this encounter Progress Notes * Ruben Potts - 03/03/2025 8:56 AM EDT Patient called today to return ?somebody's call. I do not see an encounter for this. She can be reached at [phone]. documented in this encounter Plan of Treatment Upcoming Encounters Date Type Department Care Team (Late Contact Info) Description 03/14/2025 1:00 PM EDT Ancillary Procedure [facility] [address] [place] [address] 03/17/2025 3:30 PM EDT Office Visit Adult Medicine [facility] [address] [place] [address] Cyndee Jaquez MD [address] [place] [phone] 08/01/2025 2:20 PM EDT Office Visit Pulmonolgy [facility] [address] [facility] [address] [place] [address] Karina Fraire NP [facility] [address] [place] [address] documented as of this encounter Visit Diagnoses Not on filedocumented in this encounter Care Teams Grain Receiver Relationship Specialty Start Date End Date Cyndee Jaquez MD [address] [place] [id number] PCP - General Internal Medicine 06/17/22 documented as of this encounter
[2025-03-06 20:06] LABS: Influenza A PCR NEGATIVE (Negative); Influenza B PCR NEGATIVE (Negative); Resp Syncy Virus RNA Qual PCR NEGATIVE (Negative); SARS COV2 PCR INHOUSE NEGATIVE (Negative)
[2025-03-06] MEDS: fentaNYL citrate/NS 1,000 MCG/100 ML PLAST..BAG 2.5 MCG IVCONT (20:16)
[2025-03-06] MEDS: cefTRIAXone sodium 1 GM VIAL IVPUSH (20:17)
[2025-03-06 20:19] LABS: OBS Int Ctl Valid YES; OBS1 NEGATIVE (NEGATIVE)
[2025-03-06] MEDS: Midazolam HCl 2 MG/2 ML VIAL IVPUSH (20:38)
[2025-03-06] MEDS: Magnesium Sulfate/H2O 2 GM/50 ML PIGGYBACK IV (20:49)
[2025-03-06] MEDS: Doxycycline Hyclate 100 MG in 0.9 % Sodium Chloride 250 ML 166.67 MG IV (20:49)
[2025-03-06] MEDS: Lactated Ringers 1,000 ML 500 ML IV (20:50)
[2025-03-06] MEDS: Potassium Chloride/H20 10 MEQ/100 ML PIGGYBACK 100 MEQ IV (20:51)
[2025-03-06] MEDS: DOPamine HCL/D5W 400 MG/250 ML PLAST..BAG 12.49 MG IVCONT (21:15)
[2025-03-06 21:19] LABS: Reflex Lactate? Lactic Acid Added
--- NOTE | 2025-03-06 21:40 | MHC.EDTECH ---
lactic aid reflux not drawn due to CCT being present in room prepping pt for tansport
--- NOTE | 2025-03-06 22:08 | PC.NURSE ---
Medications wasted from RSI kit with Ellen RN: Fentanyl 100 mcg/2 ml, 75 mcg/1.5 ml wasted Rocc 50 mg/5 ml, 30 mg/3 ml wasted Second vial of Rocc 50 mg/5 ml, 40 mg/4 ml wasted
--- NOTE | 2025-03-06 22:12 | PC.NURSE ---
Assumed care of patient at 1850 at this time prior shift RNs at bedside with resp and DR. Guzman to intubate. IVP 100 ketamine 1849 IVP 25mcg Fentanyl 1851 IVP [address] Guzman intubated 1852 7.5 ET 24 at lip yellow in IVP Rocc 10mg Per Dr Guzman propofol to start at 0.1mcg 1900 for sedation
== END 2025-03-06 22:16 | disposition short-term general hospital (02) ==
PROVIDERS: Emergency Provider Emergency Medicine
DX: R57.0 Cardiogenic shock (principal); R06.02 Shortness of breath; I48.91 Unspecified atrial fibrillation; I45.10 Unspecified right bundle-branch block; R94.31 Abnormal electrocardiogram [ECG] [EKG]; I95.9 Hypotension, unspecified; F17.210 Nicotine dependence, cigarettes, uncomplicated; Z03.818 Encounter for observation for suspected exposure to other biological agents ruled out; Z79.01 Long term (current) use of anticoagulants; Z79.899 Other long term (current) drug therapy
CPT/HCPCS: 0241U; 31500; 36415; 71045; 80048; 80076; 82272; 82803; 82947; 83605; 83690; 83880; 84484; 85025; 85610; 87040; 93005; 94002; 96374; 96375; 96376; 99284; 99291; J0330; J0696; J1265; J1271; J2250; J2704; J3010; J3475; J3480; J7120

== ENCOUNTER → 2025-03-06 18:31 | Outpatient (BNV) | payer OTHER, SELFPAY | PROVIDERS: Emergency Provider Emergency Medicine; Visit Provider Internal Medicine | DX: R06.09 Other forms of dyspnea (principal); R00.0 Tachycardia, unspecified; R94.31 Abnormal electrocardiogram [ECG] [EKG]; I45.19 Other right bundle-branch block | CPT/HCPCS: 93010 ==

== ENCOUNTER → 2025-03-06 18:31 | Outpatient (BNV) | payer OTHER, SELFPAY | PROVIDERS: Emergency Provider Emergency Medicine; Visit Provider Radiology Neuroradiology | DX: J84.89 Other specified interstitial pulmonary diseases (principal) | CPT/HCPCS: 71045 ==